=== PATIENT | female | born 1995 | race Caucasian/White ===

== ENCOUNTER 2023-09-27 07:37 | Inpatient (IN) ==
[2023-09-27] MEDS ORDERED: LIDOCAINE 1% LOCAL 20 ML VIAL INFIL PRN (09:18)
[2023-09-27] MEDS ORDERED: OXYTOCIN 30 UNITS/NSS 30 UNITS/500 ML BAG IV PRN (09:18)
[2023-09-27 10:02] LABS: Hematocrit (blood only) 39.7 % (37.0-47.0); Hemoglobin 14.2 g/dl (12.0-16.0); Mean Corpuscular Hemoglobin 31.1 pg (25.0-34.0); Mean Corpuscular Hgb Conc 35.8 g/dL (32.0-36.0); Mean Corpuscular Volume 87.1 fL (80.0-100.0); Mean Platelet Volume 10.4 fL (9.4-12.4); Platelet Count 218 K/uL (130-400); RDW Coefficient of Variation 12.5 % (11.5-14.5); RDW Standard Deviation 39.7 fL (36.4-46.3); Red Blood Count 4.56 M/uL (4.20-5.40); White Blood Count 10.94 K/ul (4.8-10.8)
[2023-09-27 10:17] LABS: Albumin Globulin Ratio 1.1 (0.9-2); Albumin Level 3.3 gm/dl (3.4-5.0); BUN Creatinine Ratio 15.8 (10-20); Bilirubin Direct 0.2 mg/dl (0-0.2); Bilirubin,Total 0.7 mg/dl (0.2-1.0); Calcium 9.1 mg/dl (8.6-10.3); Creatinine Clr Calc Pharmacy 85.2 ml/min; Est GFR (African American) 87.7 ml/min; Est GFR (Non-African American) 75.7 ml/min; Globulin 3.1 gm/dl (2.5-4.0); Potassium 3.9 mmol/L (3.5-5.1); Total Protein 6.4 gm/dl (6.0-8.3)
--- NOTE | 2023-09-27 10:30 | Labor Progress Brief Note ---
Date of Service September 27, 2023 Assessment & Plan Admission and Anticipated Discharge Date Admission Date: September 27, 2023 Physical Exam Genitourinary: Manual OB Exam: + cervical dilation fingertip, + cervical effacement 20% and + station high OB Exam Monitor Tracing: + external FHT monitor used, + external uterine monitor used, + category I and + normal FHT variability Results & Data Vital Signs (Past 12 Hours) Vital Signs Temp Pulse Resp BP 09/27/23 09:15 69 09/27/23 09:15 161/99 H 09/27/23 09:04 77 09/27/23 09:04 143/100 H 09/27/23 08:59 79 09/27/23 08:59 144/99 H 09/27/23 08:18 80 09/27/23 08:18 145/95 H 09/27/23 07:53 36.7 C 20 09/27/23 07:49 93 H 135/96
[2023-09-27 10:57] LABS: Total Protein Urine Random < 4.0 mg/dl (0-11.9)
[2023-09-27 11:03] LABS: Creatinine Urine Random 16.1 mg/dl
[2023-09-27] MEDS: DINOPROSTONE 10 MG INSERT PV ONE (11:05)
--- NOTE | 2023-09-27 11:15 | History & Physical Report ---
Date of Service September 27, 2023 Assessment & Plan (1) Post-dates : Plan: Cervidil for cervical ripening Admission and Anticipated Discharge Date Admission Date: September 27, 2023 History of Present Illness Chief Complaint: induction of labor Primary Care Provider: ROSE MARY PCP 28 F P0000 at 40.5 weeks presents for IOL for post dates . GBS is negative. Her course has been uneventful. Allergies Allergy/AdvReac Type Severity Reaction Status Date / Time codeine AdvReac Hives Verified 09/27/23 08:21 Penicillins AdvReac Hives Verified 09/27/23 08:21 Home Medications Medication Instructions Recorded Confirmed Type ferrous sulfate 325 mg (65 mg 325 mg PO BID 09/27/23 09/27/23 History iron) tablet (Iron (ferrous sulfate)) prenat.vits,augustine,[id number] 1 tab DAILY 09/27/23 09/27/23 History Patient History Medical History No known health problems Surgical History No history of previous surgery Social History Smoking Status: Never smoker Hx Alcohol Use: No Hx Substance Use: No Preferred Language: Arabic Communication Ability: Effective Physicist Acoustics Required: No Beliefs That Will Affect Care: None marital status: Current Living Situation: Spouse Current Living Situation Comment: Negro- Other Information That Helps Us Care for You: No Feels Safe at Home: Yes Safety Concerns: Feels Safe At This Time Assistive Devices: None 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 Review of Systems All systems reviewed & are unremarkable except as noted in HPI & below Physical Exam Constitutional: WD/WN, vitals as above Eyes: PERRL, conjunctivae normal, anicteric sclerae Respiratory: normal respiratory effort, lungs clear to auscultation Cardiovascular: Rate/Rhythm: regular rate and regular rhythm Gastrointestinal (Abdomen): Inspection/Auscultation: abdomen normal to inspection Musculoskeletal: no cyanosis or clubbing, extremities motor strength 5/5 Extremities: extremities normal to inspection no edema noted Skin: no rashes, warm and dry Neurologic: patellar DTR's 2+ bilat, sensation intact Psychiatric: A+Ox3, euthymic affect Genitourinary: OB Exam Monitor Tracing: + external FHT monitor used, + external uterine monitor used, + category I and + normal FHT variability Cervidil 10 mg placed vaginally Results & Data Vital Signs (Past 12 Hours) Vital Signs Temp Pulse Resp BP 09/27/23 10:51 74 09/27/23 10:51 134/95 09/27/23 09:15 69 09/27/23 09:15 161/99 H 09/27/23 09:04 77 09/27/23 09:04 143/100 H 09/27/23 08:59 79 09/27/23 08:59 144/99 H 09/27/23 08:18 80 09/27/23 08:18 145/95 H 09/27/23 07:53 36.7 C 20 09/27/23 07:49 93 H 135/96 Laboratory Results 09/27/23 09/27/23 09:33 Unknown WBC 10.94 H RBC 4.56 Hgb 14.2 Hct 39.7 MCV 87.1 MCH 31.1 MCHC 35.8 RDW Std Deviation 39.7 RDW Coeff of Elodia 12.5 Plt Count 218 MPV 10.4 Sodium 135 L Potassium 3.9 Chloride 106 Carbon Dioxide 22 Anion Gap 7 BUN 16 Creatinine 1.01 Est Cr Clr Drug Dosing 85.2 Est GFR ( Amer) 87.7 Est GFR (Non-Af Amer) 75.7 BUN/Creatinine Ratio 15.8 Glucose 82 Calcium 9.1 Total Bilirubin 0.7 Direct Bilirubin 0.2 AST 22 ALT 18 Alkaline Phosphatase 170 H Total Protein 6.4 Albumin 3.3 L Globulin 3.1 Albumin/Globulin Ratio 1.1 Ur Random Creatinine 16.1 U Random Total Protein < 4.0 Protein/Creatinin Ratio TNP Monitoring External Monitor Cat 1 (1) Post-dates Post-term type: 40-42 weeks gestation Qualified Code(s): O48.0 - Post-term
--- OUTSIDE RECORDS SUMMARY | 2023-09-27 15:07 | External Medical Summary | Summary of Care ---
Author Name Unknown Organization [facility] Address [address] [place] [address] Phone [phone] Care Team Providers Care Commercial Counsel Name Role Phone Mar Pittman Primary Care Provider [phone] Reason for Visit * Reason Comments Return Visit Encounter Details Date Type Department Care Team (Late st Contact Info) Description 09/24/2023 1:30 PM EDT Office Visit Gynecology/Obstetric s Anthony Groves [address] [facility] [place] [address] BackerNicole CRNP [address] [facility] [address] Normal in third trimester*; Antepartum anemia complicating Allergies Active Allergy Reactions Criticality Noted Date Comments Codeine Hives 09/08/2021 Penicillins Hives 09/08/2021 documented as of this encounter (statuses as of 09/24/2023) Medications Medication Sig Dispensed Refills Start Date End Date Status 28-0.8 MG Oral Tablet Take by mouth. 0 Active Breast PumpIndications:Breas t feeding status of mother Double electric pump, LUH 09/22/23, Z39.1 1 Each 0 07/05/2023 Active Ferrous Sulfate 325 (65 Fe) MG Oral Tablet (Feosol)Indications:A ntepartum anemia complicating Take 1 Tablet by mouth in the morning and 1 Tablet before bedtime. 60 Tablet 3 07/06/2023 Active documented as of this encounter (statuses as of 09/24/2023) Active Problems Problem Noted Date Diagnosed Date Antepartum anemia complicating 024 Overview: Hgb 11.7, iron sent - 28 wks Normal 03/20/2023 H/O dysplastic nevus 03/12/2023 Overview: Mildly atypical nevus (L upper back) Family history of breast cancer in mother 2021 Overview: Mom diagnosed at age 37, unsure if genetic testing was completed. She's s/p bilateral mastectomy Estimated Date of Delivery Comme nts Yes 09/22/2023 Based on last me nstrual period of 12/16/2022 documented as of this encounter (statuses as of 09/24/2023) Resolved Problems Problem Noted Date Diagnosed Date Resolved Date Pyelectasis 05/10/2023 08/03/2023 Overview: pyelectasis at 20w u/s. Recheck in 3rd trimester documented as of this encounter (statuses as of 09/24/2023) Immunizations Name Administration Dates Next Due COVID-19 mRNA, LNP-s, No Pre serve, 2-Dose Series ([employer]) 07/27/2020,07/06/2020 COVID-19, mRNA, LNP-s, PF, B ooster, 100mcg/0.5mg (Moderna) 05/11/2021 Seasonal Influenza, PF, 6 M & above, IM , (FluLaval or Fluzone) 04/30/2023 TDAP (age 10 and older)(Boostrix) 07/05/2023 documented as of this encounter Social History Tobacco Use Types Packs/Day Years Used Date Smoking Tobacco: Never Smokeless Tobacco: Never Alcohol Use Standard Drinks/Week Comments Not Currently 0 (1 standard drink = 0.6 oz pur e alcohol) social PHQ-2 Answer Date Recorded PHQ Adult Total Score 0 05/17/2023 Hunger Vital Sign Answer Date Recorded Within the past 12 months, y ou worried that your food would run out before you got the money to buy more. Never true 02/20/20 23 Within the past 12 months, t he food you bought just didn't last and you didn't have money to get more. Never true 02/19/2023 [place] Depression Scale Answer Date Recorded [place] Depression Scale Total 5 08/17/2023 The thought of harming myself has occurred to me . Never 08/17/2023 Estimated Date of Delivery Comme nts Yes 09/22/2023 Based on last me nstrual period of 12/16/2022 Sex and Gender Information Value Date Recorded Sex Assigned at Female 02/19/2023 2:01 PM EDT Gender Identity Female 02/19/2023 2:01 PM EDT Sexual Orientation Straight 02/19/2023 2: 01 PM EDT Job Start Date Occupation Industry Not on file Not on file Not on file documented as of this encounter Last Filed Vital Signs Vital Sign Reading Time Taken Comments Blood Pressure 120/82 09/24/2023 1:29 PM EDT Pulse - - Temperature - - Respiratory Rate - - Oxygen Saturation - - Inhaled Oxygen Concentration - - Weight 77.1 kg (170 lb) 09/24/2023 1:29 PM EDT Height - - Body Mass Index 28.29 09/10/2023 1:23 PM EDT documented in this encounter Progress Notes * Nicole Sommer CRNP - 09/24/2023 1:43 PM EDT 40w2d Baby is moving well, no signs of labor. Has an induction scheduled later this week, discussed this process. She would like a cervical exam; fingertip, long. Unable to sweep membranes, pt aware of this. Offered to reschedule induction to 41+ weeks, she is ok with the current plan. Call with any decreased FM or signs of labor. Graduate Fellow Documentation Provider requested compounding assistant. Name of compounding assistant: GUALBERTO Dunn LPN. documented in this encounter Plan of Treatment Upcoming Encounters Date Type Department Care Team (Late st Contact Info) Description 04/29/2024 2:20 PM EDT Office Visit Dermatology[address] [place] [address] Julee Gomes PA-C [address] [place] [address] [place] [address] 05/19/2024 12:10 PM EST Office Visit [facility] [address] [facility] [phone] Mar Pittman DO [address] [place] [facility] [place] [address] Health Maintenance Due Date Last Done Comments Hepatitis B (1 of 3 - 19+ 3-dose series) 2014 COVID-19 Vaccine (4 - 2022-2 4 season) 2023 05/11/2021, 07/27/2020, 07/06/2020 Depression Screening 05/17/2024 05/17/2023 Pap Smear 09/08/2024 09/08/2021 DTaP,Tdap,and Td Vaccines (2 - Td or Tdap) 07/05/2033 07/05/2023 Influenza Vaccine (FLU shot) Completed 04/30/2023 GARDASIL-HPV IMMUNIZATION SERIES Aged Out No longer eligible b ased on patient's age to complete this topic MENINGOCOCCAL (MENACTRA/MENVEO) Aged Out No longer eligible b ased on patient's age to complete this topic Pneumococcal Vaccine: Pediatrics (0 to 5 Years) and At-Risk Patients (6 to 64 Years) Aged Out No longer eligible b ased on patient's age to complete this topic documented as of this encounter Medical Devices Not on filedocumented as of this encounter Visit Diagnoses Diagnosis Normal in third trimester- Primary Antepartum anemia complicating Anemia, antepartum documented in this encounter Care Teams Commercial Counsel Relationship Specialty Start Date End Date Mar Pittman DO [address] [facility] [address] PCP - General Family Medicine 05/01/22 documented as of this encounter
--- OUTSIDE RECORDS SUMMARY | 2023-09-27 15:07 | External Medical Summary | Summary of Care ---
Author Name Unknown Organization [facility] Address [address] [facility] [address] Phone [phone] Care Team Providers Care Station Mechanic Helper Name Role Phone Mar Pittman Primary Care Provider [phone] Reason for Visit * Reason Comments Return Visit Encounter Details Date Type Department Care Team (Late st Contact Info) Description 08/27/2023 11:15 AM EST Office Visit Gynecology/Obstetric s [facility] [address] [place] [address] Judit Olsen PA-C [address] [place] [address] Normal in third trimester*; Antepartum anemia complicating Allergies Active Allergy Reactions Criticality Noted Date Comments Codeine Hives 09/08/2021 Penicillins Hives 09/08/2021 documented as of this encounter (statuses as of 08/27/2023) Medications Medication Sig Dispensed Refills Start Date [...] as of this encounter (statuses as of 08/27/2023) Active Problems Problem Noted Date Diagnosed Date [...] as of this encounter (statuses as of 08/27/2023) Resolved Problems Problem Noted Date Diagnosed Date Resolved Date Pyelectasis 05/10/2023 08/03/2023 Overview: pyelectasis at 20w u/s. Recheck in 3rd trimester documented as of this encounter (statuses as of 08/27/2023) Immunizations Name Administration Dates Next Due COVID-19 mRNA, LNP-s, No Pre serve, 2-Dose Series ([employer]) 07/27/2020,07/06/2020 COVID-19, mRNA, LNP-s, PF, B ooster, [...] money to get more. Never true 02/19/2023 [place] Depression Scale Answer Date Recorded [place] Depression Scale Total 5 08/17/2023 The thought [...] Sign Reading Time Taken Comments Blood Pressure 116/78 08/27/2023 11:14 AM EST Pulse - - Temperature - - Respiratory Rate - - Oxygen Saturation - - Inhaled Oxygen Concentration - - Weight 74.5 kg (164 lb 3.2 oz) 08/27/2023 11:14 AM EST Height 165.1 cm (5' 5") 08/27/2023 11:14 AM EST Body Mass Index 27.32 08/27/2023 11:14 AM EST documented in this encounter Progress Notes * Judit Olsen PA-C - 08/27/2023 11:16 AM EST 36w2d First time seeing patient. Due for GBS, collected. Denies bleeding, lof. Pos fm. Had some cramping early this morning, not severe, no timing and stopped. Unsure if related to bowels. Labor precautions reviewed. RTC in 1 week Judit Olsen PA-C documented in this encounter Nursing Notes * Lazara Marin RN - 08/27/2023 11:15 AM EST Patient here for CADY 36w2d No concerns GBS today + FM Lazara Marin RN documented in this encounter Plan of Treatment Upcoming Encounters Date Type Department Care Team (Late st Contact Info) Description 09/05/2023 2:15 PM EST Office Visit Gynecology/Obstetrics [facility] [address] [address] Joanne House CRNP [address] [place], [place] [address] 09/10/2023 1:30 PM EDT Office Visit Gynecology/Obstetrics [address] [address] Katy Marte, [facility] [address] [facility] [place] [address] 09/18/2023 1:45 PM EDT Office Visit Gynecology/Obstetrics [facility] [address] [facility] [place] [address] Nicole Sommer CRNP [address] [facility] [address] 04/29/2024 2:20 PM EDT Office Visit [facility] [address] [place] [address] Julee Gomes, PARebecca [address] [place] [address] [place] [address] 05/19/2024 12:10 PM EST Office Visit [facility] [address] [facility], [place] [phone] Mar Pittman DO [address] [facility] [place] [address] Scheduled Orders Name Type Priority Associated Diagnoses Orde r Schedule GROUP B STREP CULTURE/PCR Lab Routine Normal in third trimester Expected: 08/27/2023, Expires: 08/27/2024 Health Maintenance Due Date Last Done Comments Hepatitis B (1 of 3 - 19+ 3-dose series) 2014 COVID-19 Vaccine (2022-2 4 season) 2023 05/11/2021, 07/27/2020, 07/06/2020 Depression [...] antepartum documented in this encounter Care Teams Station Mechanic Helper Relationship Specialty Start Date End Date Mar Pittman DO [address] [place] [address] PCP - General Family Medicine 05/01/22 documented as of this encounter
--- OUTSIDE RECORDS SUMMARY | 2023-09-27 15:07 | External Medical Summary | Summary of Care ---
Author Name Unknown Organization [facility] Address [address] [place] [address] Phone [phone] Care Team Providers Care Photographic Specialist Name Role Phone Mar Pittman Primary Care Provider [phone] Reason for Visit * Reason Comments Return Visit Encounter Details Date Type Department Care Team (Late st Contact Info) Description 09/10/2023 1:30 PM EDT Office Visit Gynecology/Obstetric [facility] [address] [place] [address] Katy Marte, LUIS MANUEL [address] [place] [address] Normal in third trimester*; Antepartum anemia complicating Allergies Active Allergy Reactions Criticality Noted Date Comments Codeine Hives 09/08/2021 Penicillins Hives 09/08/2021 documented as of this encounter (statuses as of 09/10/2023) Medications Medication Sig Dispensed Refills Start Date [...] as of this encounter (statuses as of 09/10/2023) Active Problems Problem Noted Date Diagnosed Date [...] as of this encounter (statuses as of 09/10/2023) Resolved Problems Problem Noted Date Diagnosed Date Resolved Date Pyelectasis 05/10/2023 08/03/2023 Overview: pyelectasis at 20w u/s. Recheck in 3rd trimester documented as of this encounter (statuses as of 09/10/2023) Immunizations Name Administration Dates Next Due COVID-19 mRNA, LNP-s, No Pre serve, 2-Dose Series ([employer]) 07/27/2020,07/06/2020 COVID-19, mRNA, LNP-s, PF, B ooster, [...] money to get more. Never true 02/19/2023 [place] Depression Scale Answer Date Recorded [place] Depression Scale Total 5 08/17/2023 The thought [...] Sign Reading Time Taken Comments Blood Pressure 118/78 09/10/2023 1:23 PM EDT Pulse - - Temperature - - Respiratory Rate - - Oxygen Saturation - - Inhaled Oxygen Concentration - - Weight 76.7 kg (169 lb) 09/10/2023 1:23 PM EDT Height 165.1 cm (5' 5") 09/10/2023 1:23 PM EDT Body Mass Index 28.12 09/10/2023 1:23 PM EDT documented in this encounter Progress Notes * Katy Marte CNM - 09/10/2023 1:31 PM EDT Neelam Carter is a 28 year old female here for her routine OB appointment at 38w2d Her Estimated Date of Delivery: 09/22/23 REVIEW OF SYSTEMS: She affirms movement. Denies vaginal bleeding, LOF, contractions, N/V, headaches, vision changes, and RUQ pain. PHYSICAL EXAM: Filed Vitals: 09/10/23 1323 BP: 118/78 Weight: 76.7 kg (169 lb) Height: 1.651 m (5' 5") +FHT 150-160bpm Fundal height: 37cm ASSESSMENT/PLAN: (O99.019) Antepartum anemia complicating Plan: -Continue PO iron twice daily (Z34.93) Normal in third trimester (primary encounter diagnosis) Plan: - Recommended red raspberry leaf tea, dates, Spinning babies exercises - labor precautions and kick counts reviewed - RTO in 1 week - Discussed the recommendation for delivery by 42 weeks. Patient desires an elective induction the week of her due date. Elective induction of labor at [facility] scheduled for 09/27/23. Katy Marte CNM documented in this encounter Nursing Notes * Ramila Victor LPN - 09/10/2023 1:26 PM EDT 38w2d Denies concerns documented in this encounter Plan of Treatment Upcoming Encounters Date Type Department Care Team (Late st Contact Info) Description 09/18/2023 1:45 PM EDT Office Visit Gynecology/Obstetrics [facility] [address] [place] [address] Nicole Sommer CRNP [address] [place] [address] 04/29/2024 2:20 PM EDT Office Visit [facility]at[facility], [place] [address] [address] [facility] [address] Julee Gomes PA-C [address] [place] [address] [place] [address] 05/19/2024 12:10 PM EST Office Visit [facility], [place] [address] [facility] [phone] Mar Pittman DO [address] [facility] [address] Health Maintenance Due Date Last Done Comments [...] antepartum documented in this encounter Care Teams Photographic Specialist Relationship Specialty Start Date End Date Mar Pittman DO [address] [place] [facility] [place] [address] PCP - General Family Medicine 05/01/22 documented as of this encounter
--- OUTSIDE RECORDS SUMMARY | 2023-09-27 15:07 | External Medical Summary ---
Author Name Unknown Address Unknown Organization K01:[facility] [place] - [address] [facility] [address] [facility] [address] Laboratory Report Ordering Provider Test Date Status DAXA EM 08/27/2023 11:58:59 Final Observation Date Value Abnormality Reference (Units ) Status Streptococcus agalactiae DNA [Presence] in Specimen by HENRY with probe detection 08/27/2023 11:58:59 Negative Negative Final No Group B Streptococcus det ected by culture-enhanced PCR (amplified probe).
The collection of vaginal/rectal swab specimen combinations (FDA approved specimen type) is optimal for the detection of Group B Streptococcus. Single source collection (vaginal only or rectal only) or alternate specimen sources may lead to false negative results. Performing Location [facility] - [address] [facility] [address]
--- OUTSIDE RECORDS SUMMARY | 2023-09-27 15:07 | External Medical Summary | Summary of Care ---
Author Name Unknown Organization [facility] Address [address] [place] [address] Phone [phone] Care Team Providers Care Jukebox Routeman Name Role Phone Mar Pittman Primary Care Provider Reason for Visit * Reason Comments Return Visit Encounter Details Date Type Department Care Team (Late st Contact Info) Description 08/17/2023 8:30 AM EST Office Visit Gynecology/Obstetric [facility] [address] [place] [address] Ivory Falcon, DNP, CNM [address] [place] [address] Normal intrauterine , antepartum*; Antepartum anemia complicating Allergies Active Allergy Reactions Criticality Noted Date Comments Codeine Hives 09/08/2021 Penicillins Hives 09/08/2021 documented as of this encounter (statuses as of 08/17/2023) Medications Medication Sig Dispensed Refills Start Date [...] as of this encounter (statuses as of 08/17/2023) Active Problems Problem Noted Date Diagnosed Date [...] as of this encounter (statuses as of 08/17/2023) Resolved Problems Problem Noted Date Diagnosed Date Resolved Date Pyelectasis 05/10/2023 08/03/2023 Overview: pyelectasis at 20w u/s. Recheck in 3rd trimester documented as of this encounter (statuses as of 08/17/2023) Immunizations Name Administration Dates Next Due COVID-19 mRNA, LNP-s, No Pre serve, 2-Dose Series ([employer]) 07/27/2020,07/06/2020 COVID-19, mRNA, LNP-s, PF, B ooster, [...] money to get more. Never true 02/19/2023 [place] Depression Scale Answer Date Recorded [place] Depression Scale Total 5 08/17/2023 The thought [...] Sign Reading Time Taken Comments Blood Pressure 116/70 08/17/2023 8:15 AM EST Pulse - - Temperature - - Respiratory Rate - - Oxygen Saturation - - Inhaled Oxygen Concentration - - Weight 72.6 kg (160 lb) 08/17/2023 8:15 AM EST Height - - Body Mass Index 26.63 05/17/2023 9:06 AM EST documented in this encounter Progress Notes * Ivory Falcon, TOMEKA, CNM - 08/17/2023 8:20 AM EST Neelam Carter is a 28 year old female here for her routine OB appointment at 34w6d Her Estimated Date of Delivery: 09/22/23 REVIEW OF SYSTEMS: She affirms movement. Denies vaginal bleeding, LOF, contractions, N/V, headaches Completed classes, [facility] classes and [facility] tour. Plans to use condoms pp for contraception. Plans to travel to [place] for a wedding, discussed compression stockings, walking, and hydration. [place] Depression Scale: [place] Depression Scale Total: 5 [place] suicide question and score: Score of 3 = Yes, quite often. Score of 2 = Sometimes. Score of 1 = Hardly ever The thought of harming myself has occurred to me.: 0 PHYSICAL EXAM: Filed Vitals: 08/17/23 0815 BP: 116/70 Weight: 72.6 kg (160 lb) +FHT 130s Fundal height 34cm ASSESSMENT/PLAN: (Z34.90) Normal (primary encounter diagnosis) Plan: - Condoms - Breast feeding (classes complete) - No concerns today (O99.019) Antepartum anemia complicating Plan: - Taking iron Supervision of - discussed GBS and to expect swab to be complete at next visit -Reviewed labor precautions, kick counts, loss of fluid, vaginal bleeding, round ligament pain, and encouraged hydration. - RTO in 2 weeks Ivory Falcon DNP, CNM * Kaylin Perez LPN - 08/17/2023 8:15 AM EST 34w6d Denies vaginal bleeding/rom + movement No new concerns documented in this encounter Plan of Treatment Upcoming Encounters Date Type Department Care Team (Late st Contact Info) Description 08/27/2023 11:15 AM EST Office Visit Gynecology/Obstetrics [facility] [address] [facility] [place] [address] Judit Olsen PA-C [address] [place] [address] 04/29/2024 2:20 PM EDT Office Visit Dermatology, [place] [address] [address] [facility] [place] [address] Julee Gomes PA-C [address] [place] [address] [place] [address] 05/19/2024 12:10 PM EST Office Visit [facility] [address] [facility] [phone] Mar Pittman DO [address] [facility] [place] [address] Health Maintenance Due Date Last Done Comments [...] of this encounter Visit Diagnoses Diagnosis Normal intrauterine , antepartum- Primary Antepartum anemia complicating Anemia, antepartum documented in this encounter Care Teams Jukebox Routeman Relationship Specialty Start Date End Date Mar Pittman DO [address] [place] [address] PCP - General Family Medicine 05/01/22 documented as of this encounter
--- OUTSIDE RECORDS SUMMARY | 2023-09-27 15:07 | External Medical Summary | Summary of Care ---
Author Name Unknown Organization [facility] Address [address] [place] [address] Phone [phone] Care Team Providers Care Station Captain Name Role Phone Mar Pittman Primary Care Provider [phone] Reason for Visit * Reason Comments Return Visit Encounter Details Date Type Department Care Team (Late st Contact Info) Description 08/27/2023 11:15 AM EST Office Visit Gynecology/Obstetric s [facility] [address] [place] [address] Judit Olsen PA-C [address] [place] [address] Normal in third trimester*; Antepartum anemia complicating [...] mRNA, LNP-s, No Pre serve, 2-Dose Series ([employer]) 07/27/2020,07/06/2020 COVID-19, mRNA, LNP-s, PF, B ooster, [...] money to get more. Never true 02/19/2023 [place] Depression Scale Answer Date Recorded [place] Depression Scale Total 5 08/17/2023 The thought [...] 09/05/2023 2:15 PM EST Office Visit Gynecology/Obstetrics [facility] [address] [facility] [place] [address] Joanne House CRNP [address] [place], [place] [address] 09/10/2023 1:30 PM EDT Office Visit Gynecology/Obstetrics [address] [place] [address] Katy Marte, [facility] [address] [facility] [place] [address] 09/18/2023 1:45 PM EDT Office Visit Gynecology/Obstetrics [facility] [address] [facility] [place] [address] Nicole Sommer CRNP [address] [facility] [address] 04/29/2024 2:20 PM EDT Office Visit [facility] [address] [facility], [place] [address] Julee Gomes, PARebecca [address] [place] [address] [place] [address] 05/19/2024 12:10 PM EST Office Visit [facility] [address] [facility], [place] [phone] Mar Pittman DO [address] [facility] [place] [address] Pending Results Name Type Priority Associated Diagnoses Date /Time GROUP B STREP CULTURE/PCR Lab Routine Normal in third trimester 08/27/2023 11:58 AM EST Scheduled Orders Name Type Priority Associated Diagnoses [...] documented in this encounter Care Teams Station Captain Relationship Specialty Start Date End Date Mar Pittman DO [address] [place] [address] PCP - General Family Medicine 05/01/22 documented as of this encounter
--- OUTSIDE RECORDS SUMMARY | 2023-09-27 15:07 | External Medical Summary | Summary of Care ---
Author Name Unknown Organization [facility] Address [address] [place] [address] Phone [phone] Care Team Providers Care Electronic Pagination System Operator Name Role Phone Mar Pittman Primary Care Provider Reason for Visit * Reason Comments Return Visit Encounter Details Date Type Department Care Team (Late st Contact Info) Description 09/18/2023 1:45 PM EDT Office Visit Gynecology/Obstetric s [facility] [address] [facility] [place] [address] BackerNicole CRNP [address] [facility] [address] Normal in third trimester*; Antepartum anemia complicating ; Baseline heart rate range 100 to 120 beats per minute Allergies Active Allergy Reactions Criticality Noted Date Comments Codeine Hives 09/08/2021 Penicillins Hives 09/08/2021 documented as of this encounter (statuses as of 09/18/2023) Medications Medication Sig Dispensed Refills Start Date [...] as of this encounter (statuses as of 09/18/2023) Active Problems Problem Noted Date Diagnosed Date [...] as of this encounter (statuses as of 09/18/2023) Resolved Problems Problem Noted Date Diagnosed Date Resolved Date Pyelectasis 05/10/2023 08/03/2023 Overview: pyelectasis at 20w u/s. Recheck in 3rd trimester documented as of this encounter (statuses as of 09/18/2023) Immunizations Name Administration Dates Next Due COVID-19 mRNA, LNP-s, No Pre serve, 2-Dose Series ([employer]) 07/27/2020,07/06/2020 COVID-19, mRNA, LNP-s, PF, B ooster, [...] money to get more. Never true 02/19/2023 [place] Depression Scale Answer Date Recorded [place] Depression Scale Total 5 08/17/2023 The thought [...] Sign Reading Time Taken Comments Blood Pressure 122/78 09/18/2023 1:40 PM EDT Pulse - - Temperature - - Respiratory Rate - - Oxygen Saturation - - Inhaled Oxygen Concentration - - Weight 76.7 kg (169 lb) 09/18/2023 1:40 PM EDT Height - - Body Mass Index 28.12 09/10/2023 1:23 PM EDT documented in this encounter Progress Notes * Nicole Sommer CRNP - 09/18/2023 1:42 PM EDT 39w3d Baby is active. Denies regular ctx, leaking/bleeding. Has a post-dates induction scheduled. HR 110s with doppler, NST reactive/cat 1 tracing. 1 week return GUALBERTO Peoples ASSESSMENT assessment with Non-stress Test completed on 09/18/2023 at 39.3 weeks gestation for indicationof low baseline HR heart baseline: 120 bpm Variability: Moderate Decelerations: absent Accelerations: present Contractions: None NST start time: 1351 NST stop time: 1431 NST strip reviewed, interpreted, and approved by OB provider, GUALBERTO Peoples . NST strip stored in clinic storage file * Kaylin Perez LPN - 09/18/2023 1:40 PM EDT 39w3d Denies vaginal bleeding/rom + movement No new concerns documented in this encounter Plan of Treatment Upcoming Encounters Date Type Department Care Team (Late st Contact Info) Description 09/24/2023 1:30 PM EDT Office [facility] [address] [facility] [place] [address] Nicole Sommer CRNP [address] [place] [address] 04/29/2024 2:20 PM EDT Office Visit Dermatology, [place] [address] [place] [address] Julee Gomes PA-C [address] [place] [address] [place] [address] 05/19/2024 12:10 PM EST Office Visit Family Practice, [place] [address] [facility], [place] [phone] Mar Pittman DO [address] [place] [address] Health Maintenance Due Date Last Done Comments Hepatitis B (1 of 3 - 19+ 3-dose series) 2014 COVID-19 Vaccine ( - 2022-2 4 season) 2023 05/11/2021, 07/27/2020, [...] trimester- Primary Antepartum anemia complicating Anemia, antepartum Baseline heart rate range 100 to 120 beats per minute documented in this encounter Care Teams Electronic Pagination System Operator Relationship Specialty Start Date End Date Mar Pittman DO [address] [place] [address] PCP - General Family Medicine 05/01/22 documented as of this encounter
--- OUTSIDE RECORDS SUMMARY | 2023-09-27 15:07 | External Medical Summary | Summary of Care ---
Author Name Unknown Organization [facility] Address [address] [place] [address] Phone [phone] Care Team Providers Care Study Abroad Advisor Name Role Phone Mar Pittman DO Primary Care Provider [phone] Reason for Visit * Reason Comments Return Visit Encounter Details Date Type Department Care Team (Late st Contact Info) Description 09/05/2023 2:15 PM EST Office Visit Gynecology/Obstetric s [facility] [address] [place] [address] Joanne House CRNP [address] [facility] [place] [address] Normal in third trimester*; Antepartum anemia complicating Allergies Active Allergy Reactions Criticality Noted Date Comments Codeine Hives 09/08/2021 Penicillins Hives 09/08/2021 documented as of this encounter (statuses as of 09/05/2023) Medications Medication Sig Dispensed Refills Start Date [...] as of this encounter (statuses as of 09/05/2023) Active Problems Problem Noted Date Diagnosed Date [...] as of this encounter (statuses as of 09/05/2023) Resolved Problems Problem Noted Date Diagnosed Date Resolved Date Pyelectasis 05/10/2023 08/03/2023 Overview: pyelectasis at 20w u/s. Recheck in 3rd trimester documented as of this encounter (statuses as of 09/05/2023) Immunizations Name Administration Dates Next Due COVID-19 mRNA, LNP-s, No Pre serve, 2-Dose Series ([employer]) 07/27/2020,07/06/2020 COVID-19, mRNA, LNP-s, PF, B ooster, [...] money to get more. Never true 02/19/2023 [place] Depression Scale Answer Date Recorded [place] Depression Scale Total 5 08/17/2023 The thought [...] Sign Reading Time Taken Comments Blood Pressure 120/74 09/05/2023 2:19 PM EST Pulse - - Temperature - - Respiratory Rate - - Oxygen Saturation - - Inhaled Oxygen Concentration - - Weight 75.8 kg (167 lb) 09/05/2023 2:19 PM EST Height 165.1 cm (5' 5") 09/05/2023 2:19 PM EST Body Mass Index 27.79 09/05/2023 2:19 PM EST documented in this encounter Progress Notes * Joanne House CRNP - 09/05/2023 2:30 PM EST 37w4d Complaints: none Feeling well overall. Good FM. No contractions, bleeding, or LOF. GUALBERTO Astudillo * Tsering Brower LPN - 09/05/2023 2:19 PM EST 37w4d Denies any concerns documented in this encounter Plan of Treatment Upcoming Encounters Date Type Department Care Team (Late st Contact Info) Description 09/10/2023 1:30 PM EDT Office Visit Gynecology/Obstetrics [address] [place] [address] Katy Marte, CNM [address] [place], [place] [address], [place] [address] 09/18/2023 1:45 PM EDT Office [facility] [address] [place] [address] Nicole Sommer CRNP [address] [place] [address] 04/29/2024 2:20 PM EDT Office Visit Dermatology, [place] [address] [facility], [place] [address] Julee Gomes PA-C [address] [place] [address] [place] [address] 05/19/2024 12:10 PM EST Office Visit Family Practice, [place] [address] [facility], [place] [phone] Mar Pittman DO [address] [facility] [place] [address] Health Maintenance Due Date Last Done Comments [...] antepartum documented in this encounter Care Teams Study Abroad Advisor Relationship Specialty Start Date End Date Mar Pittman DO [address] [place], [place] [phone] PCP - General Family Medicine 05/01/22 documented as of this encounter
--- OUTSIDE RECORDS SUMMARY | 2023-09-27 15:08 | External Medical Summary | Summary of Care ---
Author Name Unknown Organization [facility] Address [address] [place] [address] Phone [phone] Care Team Providers Care Chair Inspector And Leveler Name Role Phone Mar Pittman Primary Care Provider Encounter Details Date Type Department Care Team (Late st Contact Info) Description 05/10/2023 Telephone Gynecology/Obstetrics [facility] [address] [place] [address] Joanne House CRNP [address] [facility] [place] [phone] Allergies Active Allergy Reactions Criticality Noted Date Comments Codeine Hives 09/08/2021 Penicillins Hives 09/08/2021 documented as of this encounter (statuses as of 05/11/2023) Medications Medication Sig Dispensed Refills Start Date End Date Status 28-0.8 MG Oral Tablet Take by mouth. 0 Active documented as of this encounter (statuses as of 05/11/2023) Active Problems Problem Noted Date Diagnosed Date Pyelectasis 05/10/2023 Overview: pyelectasis at 20w u/s. Recheck in 3rd trimester Normal 03/20/2023 H/O dysplastic nevus 03/12/2023 Overview: Mildly atypical nevus (L upper back) Family history of breast cancer in mother 2021 Overview: Mom diagnosed at age 37, unsure if genetic testing was completed. She's s/p bilateral mastectomy Estimated Date of Delivery Comme nts Yes 09/22/2023 Based on last me nstrual period of 12/16/2022 documented as of this encounter (statuses as of 05/11/2023) Immunizations Name Administration Dates Next Due COVID-19 mRNA, LNP-s, No Pre serve, 2-Dose Series ([employer]) 07/27/2020,07/06/2020 COVID-19, mRNA, LNP-s, PF, B ooster, 100mcg/0.5mg ([employer]) 05/11/2021 documented as of this encounter Social History Tobacco Use Types Packs/Day Years Used Date Smoking Tobacco: Never Smokeless Tobacco: Never Alcohol Use Standard Drinks/Week Comments Not Currently 0 (1 standard drink = 0.6 oz pur e alcohol) social Hunger Vital Sign Answer Date Recorded Within the past 12 months, y ou worried that your food would run out before you got the money to buy more. Never true 02/20/20 23 Within the past 12 months, t he food you bought just didn't last and you didn't have money to get more. Never true 02/19/2023 [place] Depression Scale Answer Date Recorded [place] Depression Scale Total 6 02/19/2023 The thought of harming myself has occurred to me . Never 02/19/2023 Estimated Date of Delivery Comme nts Yes [...] on file documented as of this encounter Miscellaneous Notes * Telephone Encounter - Ashley Almonte RN - 05/11/2023 8:08 AM EST Pt is aware. * Telephone Encounter - Ashley Almonte RN - 05/11/2023 7:57 AM EST left message for patient to call office * Telephone Encounter - Joanne House CRNP - 05/10/2023 4:44 PM EST Please make pt aware that her anatomy u/s showed pyelectasis. A portion of the baby's kidneysis slightly larger than expected. This is a VERY normal finding in , and rarely has any long-term effects. Recommendation is recheck via u/s in 3rd trimester, and if needed, after baby is born. All other anatomy was fine. documented in this encounter Plan of Treatment Upcoming Encounters Date Type Department Care Team (Late st Contact Info) Description 05/17/2023 9:10 AM EST Office Visit [place] [address] [facility] [place] [phone] Mar Pittman DO [address] [place] [address] 06/07/2023 1:30 PM EST Office Visit [facility]necology/[facility]stetrics [facility] [place] [address] Nicole Sommer CRNP [facility] [place] [address] 04/29/2024 2:20 PM EDT Office Visit Dermatology, [place] [address] [place] [address] Julee Gomes PA-C [address] [place] [address] [place] [address] Health Maintenance Due Date Last Done Comments Hepatitis B (1 of 3 - 3-dose series) 1995 Depression Screening 2007 DTaP,Tdap,and Td Vaccines (1 - Tdap) 2014 COVID-19 Vaccine (2022-2 4 season) 2023 05/11/2021, 07/27/2020, 07/06/2020 Influenza Vaccine (FLU shot) (#1) 2023 Pap Smear 09/08/2024 09/08/2021 GARDASIL-HPV IMMUNIZATION SERIES Aged Out No longer [...] Not on filedocumented as of this encounter Care Teams Chair Inspector And Leveler Relationship Specialty Start Date End Date Mar Pittman DO [address] [place] [address] PCP - General Family Medicine 05/01/22 documented as of this encounter
--- OUTSIDE RECORDS SUMMARY | 2023-09-27 15:08 | External Medical Summary ---
Author Name Unknown Address Unknown Organization [id number]:LABORATORY [facility] - [address] [place] [address] Laboratory Report Ordering Provider Test Date Status FAZAL GALINDO 08/02/2023 14:08:29 Final Observation Date Value Abnormality Reference (Units ) Status WBC, Total 08/02/2023 14:08:29 10.05 4.00-10.8 0 (K/uL) Final RBC 08/02/2023 14:08:29 4.20 3.85-5.15 (M/uL) Final Hemoglobin 08/02/2023 14:08:29 13.1 12.0-15.3 (g/dL) Final Anemia reflex testing trigge rs on a HGB < 12.0 for Females and HGB < 13.0 for Males in accordance with the WHO Anemia Guidelines
Anemia reflex testing triggers on a HGB < 12.0 for Females and HGB < 13.0 for Males in accordance with the WHO Anemia Guidelines HCT 08/02/2023 14:08:29 40.2 36.0-45.2 (%) Final MCV 08/02/2023 14:08:29 95.7 81.5-97.5 (fL) Final MCH 08/02/2023 14:08:29 31.2 27.0-34.0 (pg) Final MCHC 08/02/2023 14:08:29 32.6 32.0-36.0 (g/dL) Final RDW 08/02/2023 14:08:29 13.6 11.5-15.5 (%) Final Platelets 08/02/2023 14:08:29 197 140-400 (K /uL) Final MPV 08/02/2023 14:08:29 9.6 6.6-11.1 ( fL) Final Nucleated erythrocytes/100 leukocytes [Ratio] in Blood by Automated count 08/02/2023 14:08:29 0 <=0 (/100 WBCs) Fi nal Performing Location LABORATORY [facility] - [address] [facility] [address]
--- OUTSIDE RECORDS SUMMARY | 2023-09-27 15:08 | External Medical Summary ---
Author Name Unknown Address Unknown Organization [id number]:LABORATORY [place] [facility] - [address] [place] [address] Laboratory Report Ordering Provider Test Date Status BARTOLO VALLADARES 07/11/2023 07:49:54 Final Based on ACOG guideline, ges tational diabetes mellitus is diagnosed when any of the following is met:
Fasting is greater than or equal to 95 mg/dL
1 hour is greater than or equal to 180 mg/dL
2 hour is greater than or equal to 155 mg/dL
3 hour is greater than or equal to 140 mg/dL Observation Date Value Abnormality Reference (Units ) Status Glucose, fasting 07/11/2023 07:49:54 73 70- 94 (mg/dL) Final Performing Location LABORATORY [facility] [place] [address] - [address] [place] [address]
--- OUTSIDE RECORDS SUMMARY | 2023-09-27 15:08 | External Medical Summary ---
Author Name Unknown Address Unknown Organization [id number]:[facility]ORY [facility] [address] [facility] [address] Laboratory Report Ordering Provider Test Date Status BARTOLO VALLADARES 07/05/2023 14:20:55 Final Observation Date Value Abnormality Reference (Units ) Status Iron 07/05/2023 14:20:55 103 33-151 (ug/dL) Final Iron-binding capacity 07/05/2023 14:20:55 453 Above high normal 250-425 (ug/dL) Final Transferrin Sat % 07/05/2023 14:20:55 23 15-55 (%) Final Performing Location [facility] [address] [facility] [address]
--- OUTSIDE RECORDS SUMMARY | 2023-09-27 15:08 | External Medical Summary ---
Author Name Unknown Address Unknown Organization K0G:LABORATORY [place] [address] - [address] [place] [address] Laboratory Report Ordering Provider Test Date Status BARTOLO VALLADARES 07/11/2023 09:50:26 Final Observation Date Value Abnormality Reference (Units ) Status Glucose, 2-hr post glucose challenge 07/11/2023 09:50:26 101 70-154 (mg/dL) Final Performing Location LABORATORY [place] [address] - [address] [place] [address]
--- OUTSIDE RECORDS SUMMARY | 2023-09-27 15:08 | External Medical Summary | Summary of Care ---
Author Name Unknown Organization [facility] Address [address] [place] [address] Phone [phone] Care Team Providers Care Primer Assembler Name Role Phone Mar Pittman Primary Care Provider [phone] Reason for Visit * Reason Comments Outpatient Testing Encounter Details Date Type Department Care Team (Late st Contact Info) Description 08/02/2023 2:30 PM EST Laboratory Laboratory, [facility] [address] [place] [address] [facility] [address] [place] [address] Antepartum anemia complicating Allergies Active Allergy Reactions Criticality Noted Date Comments Codeine Hives 09/08/2021 Penicillins Hives 09/08/2021 documented as of this encounter (statuses as of 08/02/2023) Medications Medication Sig Dispensed Refills Start Date [...] as of this encounter (statuses as of 08/02/2023) Active Problems Problem Noted Date Diagnosed Date Antepartum anemia complicating 024 Overview: Hgb 11.7, iron sent - 28 wks Pyelectasis 05/10/2023 Overview: pyelectasis at 20w u/s. [...] as of this encounter (statuses as of 08/02/2023) Immunizations Name Administration Dates Next Due COVID-19 mRNA, LNP-s, No Pre serve, 2-Dose Series ([employer]) 07/27/2020,07/06/2020 COVID-19, mRNA, LNP-s, PF, B ooster, [...] money to get more. Never true 02/19/2023 [place] Depression Scale Answer Date Recorded [place] Depression Scale Total 7 07/05/2023 The thought of harming myself has occurred to me . Never 07/05/2023 Estimated Date of Delivery Comme nts Yes [...] on file documented as of this encounter Plan of Treatment Upcoming Encounters Date Type Department Care Team (Late st Contact Info) Description 08/17/2023 8:30 AM EST Office Visit Gynecology/Obstetrics [facility] [address] [place] [address] Ivory Falcon, DNP, CNM [address] [place] [address] 04/29/2024 2:20 PM EDT Office Visit Dermatology, [place] [address] [place] [address] Julee Gomes PA-C [address] [place] [address] [place] [address] 05/19/2024 12:10 PM EST Office Visit Family [facility] [address] [place] [phone] Mar Pittman, DO [address] [place] [address] Pending Results Name Type Priority Associated Diagnoses Date /Time CBC WITH WBC DIFFERENTIAL AND ANEMIA REFLEX WORKUP Lab Routine Antepartum anemia complicating 08/02/2023 2:08 PM EST ANEMIA CBC Lab Routine Antepartum anemia complicating 08/02/2023 2:08 PM EST DIFFERENTIAL, AUTOMATED Lab Routine Antepartum anemia complicating 08/02/2023 2:08 PM EST ANEMIA REFLEX CHEMISTRY HOLD Lab Routine Antepartum anemia complicating 08/02/2023 2:08 PM EST Health Maintenance Due Date Last Done Comments Hepatitis B (1 of 3 - 3-dose series) 1995 COVID-19 Vaccine (4 - 2022-2 4 season) [...] as of this encounter Visit Diagnoses Diagnosis Antepartum anemia complicating Anemia, antepartum documented in this encounter Care Teams Primer Assembler Relationship Specialty Start Date End Date Mar Pittman DO [address] [place] [address] PCP - General Family Medicine 05/01/22 documented as of this encounter
--- OUTSIDE RECORDS SUMMARY | 2023-09-27 15:08 | External Medical Summary | Summary of Care ---
Author Name Unknown Organization [facility] Address [address] [place] [address] Phone [phone] Care Team Providers Care Volcanologist Name Role Phone Mar Pittman DO Primary Care Provider Reason for Visit * Reason Comments Return Visit Encounter Details Date Type Department Care Team (Late st Contact Info) Description 08/02/2023 2:15 PM EST Office Visit Gynecology/Obstetric s [facility] [address] [facility] [place] [address] Joanne House CRNP [address] [place] [address] Normal in third trimester*; Pyelectasis; Antepartum anemia complicating Allergies Active Allergy Reactions [...] mRNA, LNP-s, No Pre serve, 2-Dose Series ([employer]) 07/27/2020,07/06/2020 COVID-19, mRNA, LNP-s, PF, B ooster, [...] money to get more. Never true 02/19/2023 [place] Depression Scale Answer Date Recorded [place] Depression Scale Total 7 07/05/2023 The thought [...] Sign Reading Time Taken Comments Blood Pressure 118/70 08/02/2023 1:43 PM EST Pulse - - Temperature - - Respiratory Rate - - Oxygen Saturation - - Inhaled Oxygen Concentration - - Weight 72.4 kg (159 lb 9.6 oz) 08/02/2023 1:43 P M EST Height - - Body Mass Index 26.56 05/17/2023 9:06 AM EST documented in this encounter Progress Notes * Joanne House CRNP - 08/02/2023 1:56 PM EST 32w5d Right ankle with trace edema, started yesterday. No redness or warmth, no pain. Advised to monitor,call with changes. Does not have appearance of DVT at this time, reassurance given. Baby moving well. No contractions or bleeding. Taking iron as directed, repeat CBC today. U/s today for growth and f/u pyelectasis- per tech kidneys are WNL. GUALBERTO Astudillo documented in this encounter Nursing Notes * Kaylin Perez LPN - 08/02/2023 1:47 PM EST 32w5d Denies vaginal bleeding/rom + movement Rt ankle/foot swelling US today- JACKIE 17.9cm Growth 50% documented in this encounter Plan of Treatment Upcoming Encounters Date Type Department Care Team (Late st Contact Info) Description 08/02/2023 2:30 PM EST [facility] [address] [facility] [place] [phone] GrovesBrandi zhou Rebecca [facility] [place] [address] Antepartum anemia complicating 08/17/2023 8:30 AM EST Office Visit Gynecology/Obstetric s Anthony Chapins [address] [facility] [place] [address] Ivory Falcon, DNP, CNM [address] [facility] [place] [address] 04/29/2024 2:20 PM EDT Office Visit [facility], [place] [address] [place] [address] Juele Gomes PARebecca [address] [place] [address] [place] [address] 05/19/2024 12:10 PM EST Office Visit Family [facility], [place] [address] [place] [facility] [phone] Mar Pittman, DO [address] [place] [address] Pending Results Name Type Priority Associated Diagnoses Date /Time CBC WITH WBC DIFFERENTIAL AND ANEMIA REFLEX WORKUP Lab Routine Antepartum anemia complicating 08/02/2023 2:08 PM EST Scheduled Orders Name Type Priority Associated Diagnoses Orde r Schedule CBC WITH WBC DIFFERENTIAL AND ANEMIA REFLEX WORKUP Lab Routine Antepartum anemia complicating Expected: 08/02/2023 (Approximate), Expires: 08/02/2024 Health Maintenance Due Date Last Done Comments Hepatitis B (1 of 3 - 3-dose series) 1995 COVID-19 Vaccine (2022-2 4 season) 2023 05/11/2021, [...] Diagnoses Diagnosis Normal in third trimester- Primary Pyelectasis Other specified disorder of kidney and ureter Antepartum anemia complicating Anemia, antepartum Antepartum anemia complicating Anemia, antepartum documented in this encounter Care Teams Volcanologist Relationship Specialty Start Date End Date Mar Pittman DO [address] [place] [address] PCP - General Family Medicine 05/01/22 documented as of this encounter
--- OUTSIDE RECORDS SUMMARY | 2023-09-27 15:08 | External Medical Summary ---
Author Name Unknown Address Unknown Organization [id number]:LABORATORY C - [address] [place] [address] Laboratory Report Ordering Provider Test Date Status BARTOLO VALLADARES 07/05/2023 14:20:55 Final Observation Date Value Abnormality Reference (Units ) Status Ferritin 07/05/2023 14:20:55 8 Below low normal 13- 150 (ng/mL) Final Performing Location LABORATORY [facility] [place] - [address] [place] [address]
--- OUTSIDE RECORDS SUMMARY | 2023-09-27 15:08 | External Medical Summary ---
Author Name Unknown Address Unknown Organization [id number]:LABORATORY C - [address] [place] [address] [place] [address] Laboratory Report Ordering Provider Test Date Status BARTOLO VALLADARES 07/05/2023 14:20:55 Final Observation Date Value Abnormality Reference (Units ) Status TSH 07/05/2023 14:20:55 1.33 0.27-4.20 (uIU/mL) Final Performing Location LABORATORY [facility] - [address] [place] [address]
--- OUTSIDE RECORDS SUMMARY | 2023-09-27 15:08 | External Medical Summary ---
Author Name Unknown Address Unknown Organization [id number]:LABORATORY [facility] [place] - [facility] [address] [facility] [address] Laboratory Report Ordering Provider Test Date Status JACQUELYNBACKER 07/05/2023 14:20:55 Final Observation Date Value Abnormality Reference (Units ) Status Retic, % (auto) 07/05/2023 14:20:55 1.91 Above high normal 0.80-1.90 (%) Final Reticulocytes, Absolute 07/05/2023 14:20:55 72.4 31.3-100.1 (K/uL) Final Reticulocyte fraction, immature 07/05/2023 14:20:55 13.6 2.5-20.6 (%) Final Reticulocyte HGB 07/05/2023 14:20:55 34.1 29.7-37.4 (pg) Final Performing Location LABORATORY [facility] [place] - [facility] [address] [facility] [address]
--- OUTSIDE RECORDS SUMMARY | 2023-09-27 15:08 | External Medical Summary ---
Author Name Unknown Address Unknown Organization [id number]:LABORATORY [facility] [place] - [address] [address] [facility] [address] Laboratory Report Ordering Provider Test Date Status JACQUELYNBACKER 07/05/2023 14:20:55 Final Observation Date Value Abnormality Reference (Units ) Status SYNC LEUKOCYTES IN BLOOD BY AUTOMATED COUNT 07/05/2023 14:20:55 11.15 Above high normal 4.00-10.80 (K/uL) Final Segs 07/05/2023 14:20:55 76.6 Above high normal 40.0-75.0 (%) Final Lymphs % 07/05/2023 14:20:55 16.1 Below low normal 18.0-42.0 (%) Final Monos 07/05/2023 14:20:55 5.0 1.0-11.0 (%) Final Eosinophils 07/05/2023 14:20:55 0.3 0.0-6.0 (%) Final Basos 07/05/2023 14:20:55 0.4 0.0-2.0 (%) Final Immature Granulocyte, Percent 07/05/2023 14:20:55 1.6 0.0-2.0 (%) Final Absolute Segs 07/05/2023 14:20:55 8.55 Above high normal 1.80-7.70 (K/uL) Final Lymphs, absolute 07/05/2023 14:20:55 1.79 1.00-4.80 (K/ul) Final Monos, Abs 07/05/2023 14:20:55 0.56 0.00-1.10 (K/uL) Final Eos, Abs 07/05/2023 14:20:55 0.03 0.00-0.70 (K/uL) Final Basos, Abs 07/05/2023 14:20:55 0.04 0.00-0.20 (K/uL) Final Immature Granulocytes, Number 07/05/2023 14:20:55 0.18 0.00-0.20 (K/uL) Final Performing Location LABORATORY [facility] [place] - [facility] [address] [facility] [address]
--- OUTSIDE RECORDS SUMMARY | 2023-09-27 15:08 | External Medical Summary | Summary of Care ---
Author Name Unknown Organization [facility] Address [address] [place] [address] Phone [phone] Care Team Providers Care Fish Farmer Name Role Phone Mar Pittman Primary Care Provider Reason for Visit * Reason Onset Date Comments Test Results 07/06/2023 Encounter Details Date Type Department Care Team (Late st Contact Info) Description 07/06/2023 Telephone Gynecology/Obstetrics [facility] [address] [place] [address] Nicole Sommer CRNP [address] [place] [address] Test Results Allergies Active Allergy Reactions Criticality Noted Date Comments Codeine Hives 09/08/2021 Penicillins Hives 09/08/2021 documented as of this encounter (statuses as of 07/06/2023) Medications Medication Sig Dispensed Refills Start Date [...] as of this encounter (statuses as of 07/06/2023) Active Problems Problem Noted Date Diagnosed Date [...] as of this encounter (statuses as of 07/06/2023) Immunizations Name Administration Dates Next Due COVID-19 mRNA, LNP-s, No Pre serve, 2-Dose Series (Omnireliant) 07/27/2020,07/06/2020 COVID-19, mRNA, LNP-s, PF, B ooster, [...] money to get more. Never true 02/19/2023 [place] Depression Scale Answer Date Recorded [place] Depression Scale Total 7 07/05/2023 The thought [...] encounter Miscellaneous Notes * Telephone Encounter - Myesha Whittington MED ASSIST - 07/06/2023 1:36 PM EST Appt scheduled, pt aware * Telephone Encounter - Myesha Whittington MED ASSIST - 07/06/2023 1:09 PM EST LMOM * Telephone Encounter - Keila Osborne LPN - 07/06/2023 8:56 AM EST Patient notified of abnormal glucola. The order has been placed in [facility]. Patient. advised to be NPO after 10pm the night before the test.The patient must stay on the premises for the entire time of the test. Patient counseled to take something to eat for after testing. Please call her to schedule testing. She said if today best to call after 11:30 today. * Telephone Encounter - Nicole Sommer CRNP - 07/06/2023 7:58 AM EST Elevated 1 hr glucose, please notify pt and have her schedule 3 hr GTT. Mild anemia on blood count; sending Rx for iron supplementation. Take at least 1 hr apart from vitamin and food w/dairy. Best taken with a source of vitamin C. Can take colace OTC 1-2x/day if constipation occurs. Will recheck CBC in 4 weeks. GUALBERTO Peoples documented in this encounter Plan of Treatment Upcoming Encounters Date Type Department Care Team (Late st Contact Info) Description 07/11/2023 7:40 AM EST Laboratory Laboratory, [facility] [phone] [facility] [address] [facility] [place], [place] [address] 07/19/2023 2:15 PM EST Office Visit Gynecology/Obstetrics [address] [place] [address] Nicole Sommer CRNP [address] [facility] [place] [address] 08/02/2023 1:30 PM EST Imaging Radiology [facility] 2nd [facility] [place] [address] [facility] [place] [address] 08/02/2023 2:15 PM EST Office Visit Gynecology/Obstetrics [facility] [address] [facility] [address] Joanne House CRNP [address] [facility] [place], [place] [address] 04/29/2024 2:20 PM EDT Office Visit Dermatology, [place] [address] [address] [facility], [place] [address] Julee Gomes PA-C [address] [place] [address] [place] [address] 05/19/2024 12:10 PM EST Office Visit Family Practice, [place] [address] [facility], [place] [phone] Mar Pittman DO [address] [place] [address] Scheduled Orders Name Type Priority Associated Diagnoses Orde r Schedule GESTATIONAL GLUCOSE TOLERANCE, 3 HOUR Lab Routine Elevated glucose tolerance test Expected: 07/06/2023 (Approximate), Expires: 07/06/2024 Health Maintenance Due Date Last Done Comments [...] encounter Visit Diagnoses Diagnosis Antepartum anemia complicating - Primary Anemia, antepartum Elevated glucose tolerance test Impaired glucose tolerance test documented in this encounter Care Teams Fish Farmer Relationship Specialty Start Date End Date Mar Pittman DO [address] [place] [address] PCP - General Family Medicine 05/01/22 documented as of this encounter
--- OUTSIDE RECORDS SUMMARY | 2023-09-27 15:08 | External Medical Summary ---
Author Name Unknown Address Unknown Organization [id number]:LABORATORY [facility] [place] - [facility] [address] [facility] [place] [address] Laboratory Report Ordering Provider Test Date Status JACQUELYNBACKER 07/05/2023 14:20:55 Final Observation Date Value Abnormality Reference (Units ) Status WBC, Total 07/05/2023 14:20:55 11.15 Above high normal 4 .00-10.80 (K/uL) Final RBC 07/05/2023 14:20:55 3.77 3.85-5.15 (M/uL) Final Hemoglobin 07/05/2023 14:20:55 11.7 Below low normal 12 .0-15.3 (g/dL) Final Anemia reflex testing trigge rs on a HGB < 12.0 for Females and HGB < 13.0 for Males in accordance with the WHO Anemia Guidelines
Anemia reflex testing triggers on a HGB < 12.0 for Females and HGB < 13.0 for Males in accordance with the WHO Anemia Guidelines HCT 07/05/2023 14:20:55 35.9 Below low normal 36. 0-45.2 (%) Final MCV 07/05/2023 14:20:55 95.2 81.5-97.5 (fL) Final MCH 07/05/2023 14:20:55 31.0 27.0-34.0 (pg) Final MCHC 07/05/2023 14:20:55 32.6 32.0-36.0 (g/dL) Final RDW 07/05/2023 14:20:55 12.5 11.5-15.5 (%) Final Platelets 07/05/2023 14:20:55 237 140-400 (K /uL) Final MPV 07/05/2023 14:20:55 9.6 6.6-11.1 ( fL) Final Nucleated erythrocytes/100 leukocytes [Ratio] in Blood by Automated count 07/05/2023 14:20:55 0 <=0 (/100 WBCs) Final Performing Location LABORATORY [facility] [place] - [address] [facility] [place] [address]
--- OUTSIDE RECORDS SUMMARY | 2023-09-27 15:08 | External Medical Summary | Summary of Care ---
Author Name Unknown Organization [facility] Address [address] [place] [address] Phone [phone] Care Team Providers Care Jewelry Dipper Name Role Phone Mar Pittman Primary Care Provider [phone] Reason for Visit * Reason Comments Outpatient Testing Encounter Details Date Type Department Care Team (Late st Contact Info) Description 07/05/2023 1:20 PM EST Laboratory Laboratory, [facility] 132 [place] [phone] [facility] [address] [place] [address] Normal in second trimester Allergies Active Allergy Reactions Criticality Noted Date Comments Codeine Hives 09/08/2021 Penicillins Hives 09/08/2021 documented as of this encounter (statuses as of 07/05/2023) Medications Medication Sig Dispensed Refills Start Date End Date Status 28-0.8 MG Oral Tablet Take by mouth. 0 Active documented as of this encounter (statuses as of 07/05/2023) Active Problems Problem Noted Date Diagnosed Date [...] as of this encounter (statuses as of 07/05/2023) Immunizations Name Administration Dates Next Due COVID-19 [...] money to get more. Never true 02/19/2023 [place] Depression Scale Answer Date Recorded [place] Depression Scale Total 7 07/05/2023 The thought [...] Care Team (Late st Contact Info) Description 07/19/2023 2:15 PM EST Office Visit Gynecology/Obstetrics [facility] [address] [place] [address] Nicole Sommer CRNP [address] [place] [address] 08/02/2023 1:30 PM EST Imaging Radiology [facility] 2nd Floor, [place] [address] [place] [address] 08/02/2023 2:15 PM EST Office Visit Gynecology/Obstetrics [facility] [address] [place] [address] Joanne House CRNP [address] [place] [address] 04/29/2024 2:20 PM EDT [place] [address] [place] [address] Julee Gomes PA-C [address] [place] [address] [place] [address] 05/19/2024 12:10 PM EST Office Visit Family [place] [address] [address] [facility], [place] [phone] Mar Pittman DO [address] [place] [address] Pending Results Name Type Priority Associated Diagnoses Date /Time 50-G GESTATIONAL GLUCOSE, 1 HOUR Lab Routine Normal in second trimester 07/05/2023 2:20 PM EST SYPHILIS ANTIBODY SCREEN WITH REFLEX TO RPR Lab Routine Normal in second trimester 07/05/2023 2:20 PM EST CBC WITH WBC DIFFERENTIAL AND ANEMIA REFLEX WORKUP Lab Routine Normal in second trimester 07/05/2023 2:20 PM EST SYPHILIS ANTIBODY SCREEN Lab Routine Normal in second trimester 07/05/2023 2:20 PM EST ANEMIA CBC Lab Routine Normal in second trimester 07/05/2023 2:20 PM EST DIFFERENTIAL, AUTOMATED Lab Routine Normal in second trimester 07/05/2023 2:20 PM EST ANEMIA REFLEX CHEMISTRY HOLD Lab Routine Normal in second trimester 07/05/2023 2:20 PM EST Health Maintenance Due Date Last [...] this encounter Visit Diagnoses Diagnosis Normal in second trimester documented in this encounter Care Teams Jewelry Dipper Relationship Specialty Start Date End Date Mar Pittman DO [address] [place] [address] PCP - General Family Medicine 05/01/22 documented as of this encounter
--- OUTSIDE RECORDS SUMMARY | 2023-09-27 15:08 | External Medical Summary ---
Author Name Unknown Address Unknown Organization K0G:LABORATORY [facility] [place] 57-10 - [address] [place] [address] Laboratory Report Ordering Provider Test Date Status BARTOLO VALLADARES 07/11/2023 08:53:13 Final Observation Date Value Abnormality Reference (Units ) Status Glucose [Mass/volume] in Serum or Plasma --1 hour post dose glucose 07/11/2023 08:53:13 159 70-179 (mg/dL) Final Performing Location LABORATORY [facility] [place] 57-1 0 - [address] [place] [address]
--- OUTSIDE RECORDS SUMMARY | 2023-09-27 15:08 | External Medical Summary ---
Author Name Unknown Address Unknown Organization [id number]:LABORATORY [facility] [place] 57[address] - [address] [place] [address] Laboratory Report Ordering Provider Test Date Status JACQUELYNBARTOLO 07/11/2023 10:51:27 Final Observation Date Value Abnormality Reference (Units ) Status Glucose [Mass/volume] in Serum or Plasma --3 hours post dose glucose 07/11/2023 10:51:27 73 70-139 (mg/dL) Final Performing Location LABORATORY [facility] [place] 57-1 0 - [address] [place] [address]
--- OUTSIDE RECORDS SUMMARY | 2023-09-27 15:08 | External Medical Summary ---
Author Name Unknown Address Unknown Organization K01:LABORATORY [facility] [place] - [address] [facility] [address] Laboratory Report Ordering Provider Test Date Status SU GALINDOCARITO 08/02/2023 14:08:29 Final Observation Date Value Abnormality Reference (Units ) Status SYNC LEUKOCYTES IN BLOOD BY AUTOMATED COUNT 08/02/2023 14:08:29 10.05 4.00-10.80 (K/uL) Final Segs 08/02/2023 14:08:29 73.3 40.0-75.0 (%) Final Lymphs % 08/02/2023 14:08:29 15.8 Below low normal 18.0-42.0 (%) Final Monos 08/02/2023 14:08:29 5.7 1.0-11.0 (%) Final Eosinophils 08/02/2023 14:08:29 0.3 0.0-6.0 (%) Final Basos 08/02/2023 14:08:29 0.6 0.0-2.0 (%) Final Immature Granulocyte, Percent 08/02/2023 14:08:29 4.3 Above high normal 0.0-2.0 (%) Final Absolute Segs 08/02/2023 14:08:29 7.37 1.80-7.70 (K/uL) Final Lymphs, absolute 08/02/2023 14:08:29 1.59 1.00-4.80 (K/ul) Final Monos, Abs 08/02/2023 14:08:29 0.57 0.00-1.10 (K/uL) Final Eos, Abs 08/02/2023 14:08:29 0.03 0.00-0.70 (K/uL) Final Basos, Abs 08/02/2023 14:08:29 0.06 0.00-0.20 (K/uL) Final Immature Granulocytes, Number 08/02/2023 14:08:29 0.43 Above high normal 0.00-0.20 (K/uL) Final Performing Location LABORATORY [facility] [place] - [address] [facility] [address]
--- OUTSIDE RECORDS SUMMARY | 2023-09-27 15:08 | External Medical Summary | Summary of Care ---
Author Name Unknown Organization [facility] Address [address] [place] [address] Phone [phone] Care Team Providers Care Florist Name Role Phone Mar Pittman Primary Care Provider Reason for Visit * Reason Comments Return Visit Encounter Details Date Type Department Care Team (Late st Contact Info) Description 06/07/2023 1:30 PM EST Office Visit Gynecology/Obstetric s [place] [address] [facility] [place] [address] Nicole Sommer CRNP [address] [facility] [place] [address] Normal in second trimester*; Pyelectasis Allergies Active Allergy Reactions Criticality Noted Date Comments Codeine Hives 09/08/2021 Penicillins Hives 09/08/2021 documented as of this encounter (statuses as of 06/07/2023) Medications Medication Sig Dispensed Refills Start Date End Date Status 28-0.8 MG Oral Tablet Take by mouth. 0 Active documented as of this encounter (statuses as of 06/07/2023) Active Problems Problem Noted Date Diagnosed Date Pyelectasis 05/10/2023 Overview: pyelectasis at 20w u/s. Recheck in 3rd trimester Normal 03/20/2023 H/O dysplastic nevus 03/12/2023 Overview: Mildly atypical nevus (L upper back) Family history of breast cancer in mother 03/10/ 2022 Overview: Mom diagnosed at age 37, unsure if genetic testing was completed. She's s/p bilateral mastectomy Estimated Date of Delivery Comme nts Yes 09/22/2023 Based on last me nstrual period of 12/16/2022 documented as of this encounter (statuses as of 06/07/2023) Immunizations Name Administration Dates Next Due COVID-19 mRNA, LNP-s, No Pre serve, 2-Dose Series (Coolest Cooler) 07/27/2020,07/06/2020 COVID-19, mRNA, LNP-s, PF, B ooster, 100mcg/0.5mg (Moderna) 05/11/2021 SEASONAL INFLUENZA, PF, 6 M & Above, IM , (FLULAVAL or FLUZONE) 04/30/2023 documented as of this encounter Social History [...] money to get more. Never true 02/19/2023 [place] Depression Scale Answer Date Recorded [place] Depression Scale Total 6 02/19/2023 The thought [...] Sign Reading Time Taken Comments Blood Pressure 118/66 06/07/2023 1:20 PM EST Pulse - - Temperature - - Respiratory Rate - - Oxygen Saturation - - Inhaled Oxygen Concentration - - Weight 68 kg (150 lb) 06/07/2023 1:20 PM EST Height - - Body Mass Index 24.96 05/17/2023 9:06 AM EST documented in this encounter Progress Notes * Kaylin Perez LPN - 06/07/2023 1:20 PM EST 24w5d Denies vaginal bleeding/rom + movement No new concerns * Nicole Sommer CRNP - 06/07/2023 1:19 PM EST 24w5d Doing well, + movement. No cramping, bleeding. Aware of pyelectasis - discussed. Will obtain repeat u/s in 3rd trimester. Labs discussed, ordered for next visit in 4 weeks. Discussed Tdap at 28 wks. GUALBERTO Peoples documented in this encounter Plan of Treatment Upcoming Encounters Date Type Department Care Team (Late st Contact Info) Description 07/05/2023 1:20 PM EST [facility] [address] [place] [phone] [facility] [address] [place] [address] 07/05/2023 1:30 PM EST Office Visit Gynecology/Obstetrics [facility] [address] [place] [address] Nicole Sommer CRNP [address] [place] [address] 04/29/2024 2:20 PM EDT Office [address] [address] Julee Gomes, PAMacC [address] [place] [address] [place] [address] 05/19/2024 12:10 PM EST Office Visit [facility] [address] [place] [phone] Mar Pittman DO [address] [place] [address] Scheduled Orders Name Type Priority Associated Diagnoses Orde r Schedule 50-G GESTATIONAL GLUCOSE, 1 HOUR Lab Routine Normal in second trimester Expected: 06/21/2023 (Approximate), Expires: 06/07/2024 SYPHILIS ANTIBODY SCREEN WITH REFLEX TO RPR Lab Routine Normal in second trimester Expected: 06/21/2023 (Approximate), Expires: 06/07/2024 CBC WITH WBC DIFFERENTIAL AND ANEMIA REFLEX WORKUP Lab Routine Normal in second trimester Expected: 06/21/2023 (Approximate), Expires: 06/07/2024 Health Maintenance Due Date Last Done Comments Hepatitis B (1 of 3 - 3-dose series) 1995 DTaP,Tdap,and Td Vaccines (1 - Tdap) 2014 COVID-19 Vaccine (2022-2 4 season) 2023 05/11/2021, 07/27/2020, 07/06/2020 Depression Screening 05/17/2024 05/17/2023 Pap Smear 09/08/2024 09/08/2021 Influenza Vaccine (FLU shot) Completed 04/30/2023 GARDASIL-HPV [...] encounter Visit Diagnoses Diagnosis Normal in second trimester- Primary Pyelectasis Other specified disorder of kidney and ureter documented in this encounter Care Teams Florist Relationship Specialty Start Date End Date Mar Pittman DO [address] [place] [address] PCP - General Family Medicine 05/01/22 documented as of this encounter
--- OUTSIDE RECORDS SUMMARY | 2023-09-27 15:08 | External Medical Summary | Summary of Care ---
Author Name Unknown Organization [facility] Address [address] [place] [address] Phone [phone] Care Team Providers Care Heel Gouger Name Role Phone Mar Pittman Primary Care Provider [phone] Reason for Visit * Reason Comments Return Visit Encounter Details Date Type Department Care Team (Late st Contact Info) Description 07/19/2023 2:15 PM EST Office Visit Gynecology/Obstetric s [facility] [address] [facility] [place] [address] BackNicole velasquez CRNP [address] [facility] [place], [facility] Log[facility] [address] Normal in third trimester*; Pyelectasis; Antepartum anemia complicating Allergies Active Allergy Reactions Criticality Noted Date Comments Codeine Hives 09/08/2021 Penicillins Hives 09/08/2021 documented as of this encounter (statuses as of 07/19/2023) Medications Medication Sig Dispensed Refills Start Date [...] as of this encounter (statuses as of 07/19/2023) Active Problems Problem Noted Date Diagnosed Date [...] as of this encounter (statuses as of 07/19/2023) Immunizations Name Administration Dates Next Due COVID-19 mRNA, LNP-s, No Pre serve, 2-Dose Series ([employer]) 07/27/2020,07/06/2020 COVID-19, mRNA, LNP-s, PF, B ooster, [...] money to get more. Never true 02/19/2023 [place] Depression Scale Answer Date Recorded [place] Depression Scale Total 7 07/05/2023 The thought [...] Sign Reading Time Taken Comments Blood Pressure 104/66 07/19/2023 2:18 PM EST Pulse - - Temperature - - Respiratory Rate - - Oxygen Saturation - - Inhaled Oxygen Concentration - - Weight 70.8 kg (156 lb) 07/19/2023 2:18 PM EST Height - - Body Mass Index 25.96 05/17/2023 9:06 AM EST documented in this encounter Progress Notes * Nicole Sommer CRNP - 07/19/2023 2:34 PM EST 30w5d Doing well, baby is active. No ctx, leaking/bleeding. Passed 3 hr GTT. FMLA paperwork given to nursing staff to complete. She is concerned w/lack of weight gain since last appt, feels she is eating enough. Reassured, normal fundal height today. Has U/S scheduled in 2 weeks. GUALBERTO Peoples * Kaylin Perez LPN - 07/19/2023 2:19 PM EST 30w5d Denies vaginal bleeding/rom + movement No new concerns documented in this encounter Plan of Treatment Upcoming Encounters Date Type Department Care Team (Late st Contact Info) Description 08/02/2023 1:30 PM EST Imaging Radiology [facility] 2nd [facility], [address] [place] [address] 08/02/2023 2:15 PM EST Office Visit Gynecology/Obstetrics [facility] [address] [place] [address] Joanne House CRNP [address] [place] [address] 04/29/2024 2:20 PM EDT Office Visit Dermatology, [place] [address] [address] [facility], [place] [address] Julee Gomes PA-C [address] [place] [address] [place] [address] 05/19/2024 12:10 PM EST Office Visit Family [facility], [place] [address] [facility], [place] [phone] Mar Pittman DO [address] [facility], [place] [address] Health Maintenance Due Date Last Done Comments [...] and ureter Antepartum anemia complicating Anemia, antepartum documented in this encounter Care Teams Heel Gouger Relationship Specialty Start Date End Date Mar Pittman DO [address] [place] [address] PCP - General Family Medicine 05/01/22 documented as of this encounter
--- OUTSIDE RECORDS SUMMARY | 2023-09-27 15:08 | External Medical Summary | Summary of Care ---
Author Name Unknown Organization [facility] Address [address] [place] [address] Phone [phone] Care Team Providers Care Automotive Parts Counterperson Name Role Phone Mar Pittman Primary Care Provider [phone] Reason for Visit * Reason Comments Outpatient Testing Encounter Details Date Type Department Care Team (Late st Contact Info) Description 07/11/2023 7:40 AM EST Laboratory Laboratory, [facility] [address] [place] [address] [facility] [address] [place] [address] Elevated glucose tolerance test Allergies Active Allergy Reactions Criticality Noted Date Comments Codeine Hives 09/08/2021 Penicillins Hives 09/08/2021 documented as of this encounter (statuses as of 07/11/2023) Medications Medication Sig Dispensed Refills Start Date [...] as of this encounter (statuses as of 07/11/2023) Active Problems Problem Noted Date Diagnosed Date Antepartum anemia complicating 01/05/2 024 Overview: Hgb 11.7, iron sent - [...] as of this encounter (statuses as of 07/11/2023) Immunizations Name Administration Dates Next Due COVID-19 mRNA, LNP-s, No Pre serve, 2-Dose Series ([employer]) 07/27/2020,07/06/2020 COVID-19, mRNA, LNP-s, PF, B ooster, [...] money to get more. Never true 02/19/2023 [place] Depression Scale Answer Date Recorded [place] Depression Scale Total 7 07/05/2023 The thought [...] 07/19/2023 2:15 PM EST Office Visit Gynecology/Obstetrics [facility] [address] [place] [address] Nicole Sommer CRNP [address] [facility] [place] [address] 08/02/2023 1:30 PM EST Imaging Radiology [facility] 2nd Floor, [place] [facility] [place] [address] 08/02/2023 2:15 PM EST Office Visit Gynecology/Obstetrics [facility] [address] [facility] [place] [address] Joanne House CRNP [address] [place] [address] 04/29/2024 2:20 PM EDT Office Visit Dermatology, [place] [address] [address] [facility], [place] [address] Julee Gomes PA-C [address] [place] [address] [place] [address] 05/19/2024 12:10 PM EST Office Visit Family [facility], [place] [address] [address] [facility] [phone] Mar Pittman DO [address] [facility], [place] [address] Pending Results Name Type Priority Associated Diagnoses Date /Time GESTATIONAL GLUCOSE TOLERANCE, 3 HOUR Lab Routine Elevated glucose tolerance test 07/11/2023 7:49 AM EST 100-G GESTATIONAL GLUCOSE, 2 HOUR Lab Routine Elevated glucose tolerance test 07/11/2023 9:50 AM EST 100-G GESTATIONAL GLUCOSE, 3 HOUR Lab Routine Elevated glucose tolerance test 07/11/2023 10:51 AM EST Health Maintenance Due Date Last Done [...] Not on filedocumented as of this encounter Procedures Procedure Name Priority Date/Time Associated Diagnosis Comments 100-G GESTATIONAL GLUCOSE, 1 HOUR Routine 07/11/2023 8:53 AM EST Elevated glucose tolerance test 100-G GESTATIONAL GLUCOSE, FASTING Routine 07/11/2023 7:49 AM EST Elevated glucose tolerance test documented in this encounter Results * 100-G GESTATIONAL GLUCOSE, 1 HOUR (07/11/2023 8:53 AM EST) 100-g Gestational Glucose, 1 Hour 159 70 - 179 mg/dL 07/11/2023 9:28 AM EST [address]ORY [facility] 57-10 Blood Venous blood specimen / Unknown Venipuncture / Unknown 07/11/2023 8:53 AM EST 07/11/2023 8:53 AM EST Nicole Aj Ros [facility] RDER[facility]LES LABORATORY [place] 57-10 [address] [place] [address] * 100-G GESTATIONAL GLUCOSE, FASTING (07/11/2023 7:49 AM EST) 100-g Gestational Glucose, Fasting 73 70 - 94 mg/dL 07/11/2023 9:04 AM EST LABORATORY [place] 57-10 Blood Venous blood specimen / Unknown Venipuncture / Unknown 07/11/2023 7:49 AM EST 07/11/2023 7:49 AM EST Narrative LABORATORY [facility] [place] 57-10 - 07/11/2023 9:04 AM EST Based on ACOG guideline, gestational diabetes mellitus is diagnosed when any of the following is met: Fasting is greater than or equal to 95 mg/dL 1 hour is greater than or equal to 180 mg/dL 2 hour is greater than or equal to 155 mg/dL 3 hour is greater than or equal to 140 mg/dL Nicole Vargaschiquis [facility] LABORATORY [place] 57-10 [address] [place] [address] documented in this encounter Visit Diagnoses Diagnosis Elevated glucose tolerance test Impaired glucose tolerance test documented in this encounter Care Teams Automotive Parts Counterperson Relationship Specialty Start Date End Date Mar Pittman DO [address] [place] [address] PCP - General Family Medicine 05/01/22 documented as of this encounter
--- OUTSIDE RECORDS SUMMARY | 2023-09-27 15:08 | External Medical Summary ---
Author Name Unknown Address Unknown Organization [id number]:LABORATORY [facility] - [address] [place] [address] Laboratory Report Ordering Provider Test Date Status BARTOLO VALLADARES 07/05/2023 14:20:55 Final Observation Date Value Abnormality Reference (Units ) Status Vitamin B12 07/05/2023 14:20:55 [phone] (pg/mL) Final Performing Location LABORATORY [facility] - [address] [place] [address]
--- OUTSIDE RECORDS SUMMARY | 2023-09-27 15:08 | External Medical Summary ---
Author Name Unknown Address Unknown Organization [id number]:[place] [place] [address] [place] [address] Laboratory Report Ordering Provider Test Date Status JACQUELYNBARTOLO 07/05/2023 14:20:55 Final Observation Date Value Abnormality Reference (Units ) Status Glucose [Moles/volume] in Serum or Plasma --1 hour post 50 g glucose PO 07/05/2023 14:20:55 142 Above high normal 70-129 (mg/dL) Final Performing Location [facility] [place] [address] [place] [address]
--- OUTSIDE RECORDS SUMMARY | 2023-09-27 15:08 | External Medical Summary | Summary of Care ---
Author Name Unknown Organization [facility] Address [address] [place] [address] Phone [phone] Care Team Providers Care Aviation Program Manager Name Role Phone Mar Pittman Primary Care Provider [phone] Reason for Visit * Reason Comments Return Visit Encounter Details Date Type Department Care Team (Late st Contact Info) Description 07/05/2023 1:30 PM EST Office Visit Gynecology/Obstetric s [facility] [address] [facility] [place] [address] BackNicole velasquez CRNP [address] [facility] [address] Normal in third trimester*; Pyelectasis; Need for prophylactic vaccination with combined uvpgaiubde-uhayemv-ql rtussis (DTP) vaccine; Breast feeding status of mother Allergies Active Allergy Reactions Criticality Noted Date Comments Codeine Hives 09/08/2021 Penicillins Hives 09/08/2021 documented as of this encounter (statuses as of 07/05/2023) Medications Medication Sig Dispensed Refills Start Date End Date Status 28-0.8 MG Oral Tablet Take by mouth. 0 Active Breast PumpIndications:Breas t feeding status of mother Double electric pump, [facility] 09/22/23, Z39.1 1 Each 0 07/05/2023 Active documented as of this encounter (statuses [...] mRNA, LNP-s, No Pre serve, 2-Dose Series ([employer]) 07/27/2020,07/06/2020 COVID-19, mRNA, LNP-s, PF, B ooster, [...] money to get more. Never true 02/19/2023 [place] Depression Scale Answer Date Recorded [place] Depression Scale Total 7 07/05/2023 The thought [...] Sign Reading Time Taken Comments Blood Pressure 114/68 07/05/2023 1:25 PM EST Pulse - - Temperature - - Respiratory Rate - - Oxygen Saturation - - Inhaled Oxygen Concentration - - Weight 71.2 kg (157 lb) 07/05/2023 1:25 PM EST Height - - Body Mass Index 26.13 05/17/2023 9:06 AM EST documented in this encounter Progress Notes * aKylin Perez LPN - 07/05/2023 1:24 PM EST 28w5d Denies vaginal bleeding/rom + movement No new concerns Gtt today Tdap today * Nicole Sommer CRNP - 07/05/2023 1:24 PM EST 28w5d Baby is moving well. No ctx/leaking/bleeding. Completing labs, accepts Tdap. Discussed exercise in , [facility]. Plan to repeat u/s in 4 weeks to recheck pyelectasis. Rx provided for breast pump. Return in 2 weeks. GUALBERTO Peoples documented in this encounter Nursing Notes * Kaylin Perez LPN - 07/05/2023 1:38 PM EST Patient here for tdap injection. Patient doing well no complaints. Injection given IM as ordered. Patient tolerated well. Patient to follow up as directed. Patient instructed to call if any complications. Patient verbalized understanding of instructions given. Injection site: Left Deltoid Medication Source: Dispensed stock medication documented in this encounter Plan of Treatment Upcoming Encounters Date Type Department Care Team (Late st Contact Info) Description 07/19/2023 2:15 PM EST Office Visit Gynecology/Obstetrics [facility] [address] [facility] [place] [address] Nicole Sommer CRNP [address] [place] [address] 08/02/2023 1:30 PM EST Imaging Radiology [facility] 2nd Floor, [place] [address] [facility] [place] [address] 08/02/2023 2:15 PM EST Office Visit Gynecology/Obstetrics [facility] [address] [facility] [place] [address] Joanne House CRNP [address] [place] [address] 04/29/2024 2:20 PM EDT [place] [address] [place] [facility] [place] [address] Julee Gomes PA-C [address] [place] [address] [place] [address] 05/19/2024 12:10 PM EST Office Visit Family [place] [address] [address] [facility], [place] [phone] Mar Pittman DO [address] [place] [address] Scheduled Orders Name Type Priority Associated Diagnoses Orde r Schedule US PREG FOLLOW-UP EACH FETUS Medical Imaging Routine Normal in third trimester Pyelectasis Expected: 08/05/2023 (Approximate), Expires: 08/05/2024 Health Maintenance Due Date Last Done Comments [...] Other specified disorder of kidney and ureter Need for prophylactic vaccination with combined esjvpxywwq-hsjmcgc-wxsjzaoyl (DTP) vaccine Breast feeding status of mother care and examination of lactating mother documented in this encounter Care Teams Aviation Program Manager Relationship Specialty Start Date End Date Mar Pittman DO [address] [place] [address] PCP - General Family Medicine 05/01/22 documented as of this encounter
--- OUTSIDE RECORDS SUMMARY | 2023-09-27 15:08 | External Medical Summary ---
Author Name Unknown Address Unknown Organization K01:[facility]ORY [facility] [address] [place] [address] Laboratory Report Ordering Provider Test Date Status BARTOLO VALLADARES 07/05/2023 14:20:55 Final Observation Date Value Abnormality Reference (Units ) Status Folic Acid 07/05/2023 14:20:55 >20.0 >4.5 (ng/ mL) Final Performing Location LABORATORY C - [address] [place] [address]
--- OUTSIDE RECORDS SUMMARY | 2023-09-27 15:08 | External Medical Summary | Summary of Care ---
Author Name Unknown Organization [facility] Address [address] [place] [address] Phone [phone] Care Team Providers Care Corporate Travel Expert Name Role Phone Mar Pittman DO Primary Care Provider [phone] Reason for Visit * Reason Comments Physical-Exam Annual exam Encounter Details Date Type Department Care Team (Late st Contact Info) Description 05/17/2023 9:10 AM EST Office Visit [place] [address] [place] [address] Mar Pittman DO [address] [place] [address] Physical exam, routine* Allergies Active Allergy Reactions Criticality Noted Date Comments Codeine Hives 09/08/2021 Penicillins Hives 09/08/2021 documented as of this encounter (statuses as of 05/17/2023) Medications Medication Sig Dispensed Refills Start Date End Date Status 28-0.8 MG Oral Tablet Take by mouth. 0 Active documented as of this encounter (statuses as of 05/17/2023) Active Problems Problem Noted Date Diagnosed Date [...] as of this encounter (statuses as of 05/17/2023) Immunizations Name Administration Dates Next Due COVID-19 mRNA, LNP-s, No Pre serve, 2-Dose Series ([employer]) 07/27/2020,07/06/2020 COVID-19, mRNA, LNP-s, PF, B ooster, 100mcg/0.5mg (Moderna) 05/11/2021 SEASONAL INFLUENZA, PF, 6 M & Above, IM , (FLULAVAL or FLUZONE) 04/30/2023 documented as of this encounter Social History Tobacco Use Types Packs/Day Years Used Date Smoking Tobacco: Never Smokeless Tobacco: Never Tobacco Cessation:Counseling Given: Not Answered Alcohol Use Standard Drinks/Week Comments Not Currently [...] money to get more. Never true 02/19/2023 [place] Depression Scale Answer Date Recorded [place] Depression Scale Total 6 02/19/2023 The thought [...] Sign Reading Time Taken Comments Blood Pressure 112/58 05/17/2023 9:06 AM EST Pulse 79 05/17/2023 9:06 AM EST Temperature 36.9 C (98.4 F) 05/17/2023 9:06 AM ES T Respiratory Rate 20 05/17/2023 9:06 AM EST Oxygen Saturation 98% 05/17/2023 9:06 AM EST Inhaled Oxygen Concentration - - Weight - - Height 165.1 cm (5' 5") 05/17/2023 9:06 AM EST Body Mass Index - - documented in this encounter Progress Notes * Mar Pittman, - 05/17/2023 9:12 AM EST Subjective: Neelam Carter is a 28 year old female. Chief Complaint Patient presents with Physical-Exam Annual exam HPI: 28 yr old female here today for a physical. She is , around 22 weeks . In the beginning of her she was nauseated, but this is better. Taking She did get flu vaccine. She is an occupational therapist. We talked about Tdap and RSV vaccines toget towards the end of her . Her weight is stable. No complaints today. Needs to arrange adental visit. Pap test is up to date. PHM: Patient Active Problem List Diagnosis Code Family history of breast cancer in mother Z80.3 H/O dysplastic nevus Z86.018 Normal Z34.90 Pyelectasis N13.30 Current Outpatient Medications Medication Sig Dispense Refill 28-0.8 MG Oral Tablet Take by mouth. No current facility-administered medications for this visit. Review of patient's allergies indicates: Allergen Reactions Codeine Hives Penicillins Hives Objective: BP 112/58 | Pulse 79 | Temp 36.9 C (98.4 F) (Temporal Artery) | Resp 20 | Ht 1.651 m (5' 5") | LMP 12/16/2022 | SpO2 98% | BMI 23.13 kg/m | BSA 1.7 m Physical Exam: General: alert, healthy, and no distress Oropharynx: no exudate, no erythema, lips, buccal mucosa, and tongue normal, and mucous membranes are moist Heart: regular rate & rhythm, no murmur, and no gallops Lungs: chest symmetric with normal AP diameter, no chest deformities noted, no chest wall tenderness, lungs clear to auscultation Abdomen: abdomen soft, non-tender, normal bowel sounds, and no masses or organomegaly. + gravid Extremities: no edema ASSESSMENT/PLAN: Physical exam, routine (Primary) --normal exam. -to discuss with OB about tdap and RSV in 3rd trimester --pap up to date. --to make eye appt and dental appts. She has gotten flu vaccine already. Mar Pittman DO documented in this encounter Nursing Notes * Lorraine Ellis LPN - 05/17/2023 9:06 AM EST The patient has been properly identified by confirmation of name and date of . Chief Complaint Patient presents with Physical-Exam Annual exam documented in this encounter Plan of Treatment Upcoming Encounters Date Type Department Care Team (Late st Contact Info) Description 06/07/2023 1:30 PM EST Office Visit Gynecology/Obstetrics [facility] [address] [facility] [place] [address] BackerNicole CRNP [address] [facility] [place] [address] 04/29/2024 2:20 PM EDT Office Visit Dermatology, [place] [address] [place] [address] Julee Gomes PA-C [address] [place] [address] [place] [address] 05/19/2024 12:10 PM EST [facility] Visit [facility] [address] [facility] [phone] Mar Pittman DO [address] [facility] [address] Health Maintenance Due Date Last Done Comments Hepatitis B (1 of 3 - 3-dose series) 1995 Depression Screening 2007 DTaP,Tdap,and Td Vaccines (1 - Tdap) 2014 COVID-19 Vaccine (2022-2 4 season) 2023 05/11/2021, 07/27/2020, 07/06/2020 Pap Smear 09/08/2024 09/08/2021 Influenza Vaccine (FLU [...] as of this encounter Visit Diagnoses Diagnosis Physical exam, routine- Primary Routine general medical examination at a health care facility documented in this encounter Care Teams Corporate Travel Expert Relationship Specialty Start Date End Date Mar Pittman DO [address] [place] [address] PCP - General Family Medicine 05/01/22 documented as of this encounter
--- OUTSIDE RECORDS SUMMARY | 2023-09-27 15:08 | External Medical Summary ---
Author Name Unknown Address Unknown Organization K01:LABORATORY [facility] [place] - [address] [place], [place] [address] Laboratory Report Ordering Provider Test Date Status BARTOLO VALLADARES 07/05/2023 14:20:55 Final Observation Date Value Abnormality Reference (Units ) Status Treponema pallidum Ab [Presence] in Serum by Immunoassay 07/05/2023 14:20:55 Nonreactive Nonreactive Final No serologic evidence of syp hilis. No additional testing clinicially indicated at this time. Consider repeat testing in 2-4 weeks if acute or primary syphilis is suspected. Performing Location LABORATORY [facility] [place] [facility] [address] [facility] [address]
--- OUTSIDE RECORDS SUMMARY | 2023-09-27 15:08 | External Medical Summary ---
Author Name Unknown Address Unknown Organization K01:LABORATORY [facility] [place] [place] - [facility] [address] [place] [address] Laboratory Report Ordering Provider Test Date Status BARTOLO VALLADARES 07/05/2023 14:20:55 Final Observation Date Value Abnormality Reference (Units ) Status Creatinine 07/05/2023 14:20:55 0.8 0.5-1.0 (mg/dL) Final Glomerular filtration rate/1.73 sq M.predicted [Volume Rate/Area] in Serum, Plasma or Blood by Creatinine-based formula (CKD-EPI) 07/05/2023 14:20:55 >90 >=60 (mL/min) Final eGFR is calculated based on the CKD-EPI 2020 equation Performing Location LABORATORY [facility] [place] [place] - [facility] [place] [address]
--- OUTSIDE RECORDS SUMMARY | 2023-09-27 15:09 | External Medical Summary | Summary of Care ---
Author Name Unknown Organization [facility] Address [address] [place] [address] Phone [phone] Care Team Providers Care Acidity Tester Name Role Phone Mar Pittman Primary Care Provider [phone] Reason for Visit * Reason Comments Return Visit Encounter Details Date Type Department Care Team (Late st Contact Info) Description 05/10/2023 2:15 PM EST Office Visit Gynecology/Obstetric [facility] [place] [address] [facility] [place] [address] Nicole Sommer CRNP [address] [facility] [place] [place] [address] Normal in second trimester* Allergies Active Allergy Reactions Criticality Noted Date Comments Codeine Hives 09/08/2021 Penicillins Hives 09/08/2021 documented as of this encounter (statuses as of 05/10/2023) Medications Medication Sig Dispensed Refills Start Date End Date Status 28-0.8 MG Oral Tablet Take by mouth. 0 Active documented as of this encounter (statuses as of 05/10/2023) Active Problems Problem Noted Date Diagnosed Date Normal 03/20/2023 H/O dysplastic nevus 03/12/2023 Overview: Mildly atypical nevus (L upper back) Family history of breast cancer in mother 2021 Overview: Mom diagnosed at age 37, unsure if genetic testing was completed. She's s/p bilateral mastectomy Estimated Date of Delivery Comme nts Yes 09/22/2023 Based on last me nstrual period of 12/16/2022 documented as of this encounter (statuses as of 05/10/2023) Immunizations Name Administration Dates Next Due COVID-19 [...] money to get more. Never true 02/19/2023 [place] Depression Scale Answer Date Recorded [place] Depression Scale Total 6 02/19/2023 The thought [...] Sign Reading Time Taken Comments Blood Pressure 106/62 05/10/2023 1:01 PM EST Pulse - - Temperature - - Respiratory Rate - - Oxygen Saturation - - Inhaled Oxygen Concentration - - Weight 63 kg (139 lb) 05/10/2023 1:01 PM EST Height - - Body Mass Index 23.13 04/17/2023 2:18 PM EDT documented in this encounter Progress Notes * Nicloe Sommer CRNP - 05/10/2023 1:09 PM EST 20w5d Doing well, anatomy scan completed today, report in process. +cardiac activity on scan. Did not find out baby's sex. Declines genetic screening. Discussed sleeping positions in . 4 week return GUALBERTO Peoples * Kaylin Perez LPN - 05/10/2023 1:01 PM EST 20w5d Denies vaginal bleeding/rom + movement Anatomy scan today No new concerns documented in this encounter Plan of Treatment Upcoming Encounters Date Type Department Care Team (Late st Contact Info) Description 05/17/2023 9:10 AM EST [facility] [address] [facility] [address] Mar Pittman DO [address] [facility] [address] 06/07/2023 1:30 PM EST Office Visit Gynecology/Obstetrics [facility] [address] [facility] [place] [address] Nicole Sommer CRNP [address] [facility] [place] [address] 04/29/2024 2:20 PM EDT Office Visit Dermatology, [place] [address] [facility] [place] [address] Julee Gomes PA-C [address] [place] [address] [place] [address] Health Maintenance Due Date Last Done Comments [...] Diagnoses Diagnosis Normal in second trimester- Primary documented in this encounter Care Teams Acidity Tester Relationship Specialty Start Date End Date Mar Pittman DO [address] [place] [address] PCP - General Family Medicine 05/01/22 documented as of this encounter
--- OUTSIDE RECORDS SUMMARY | 2023-09-27 15:09 | External Medical Summary | Summary of Care ---
Author Name Unknown Organization [facility] Address [address] [place] [address] Phone [phone] Care Team Providers Care Hard Metals Hand Engraver Name Role Phone Mar Pittman DO Primary Care Provider [phone] Reason for Visit * Reason Onset Date Comments Advice 05/01/2023 Encounter Details Date Type Department Care Team (Late st Contact Info) Description 05/01/2023 Telephone [place] [address] [place] [address] Mar Pittman DO [address] [place] [address] Advice Allergies Active Allergy Reactions Criticality Noted Date Comments Codeine Hives 09/08/2021 Penicillins Hives 09/08/2021 documented as of this encounter (statuses as of 05/02/2023) Medications Medication Sig Dispensed Refills Start Date End Date Status 28-0.8 MG Oral Tablet Take by mouth. 0 Active documented as of this encounter (statuses as of 05/02/2023) Active Problems Problem Noted Date Diagnosed Date [...] as of this encounter (statuses as of 05/02/2023) Immunizations Name Administration Dates Next Due COVID-19 [...] money to get more. Never true 02/19/2023 [place] Depression Scale Answer Date Recorded [place] Depression Scale Total 6 02/19/2023 The thought [...] encounter Miscellaneous Notes * Telephone Encounter - Lorraine Ellis LPN - 05/02/2023 9:37 AM EDT Tick was present for @ 12 hours maybe longer. Did not appeared that it was in very far and body wasnot filled. Area is a red spot with a darker area in the center. Patient is willing to monitor the area for any changes/rash or enlarged area * Telephone Encounter - Gurmeet Morocho MD - 05/01/2023 5:19 PM EDT Does the patient know how long the tick had been present? Was it engorged? Doxycycline is generallycontraindicated in . Likely reasonable to monitor for development of erythema migrans rash. If this presents, can be treated for early lyme disease with non-tetracycline antibiotic. Gurmeet Morocho MD * Telephone Encounter - Noelle Jarrett OSA - 05/01/2023 10:40 AM EDT Reason for patient's call: tick bite back of L arm below shoulder found today - tick was removed and was disposed of Some redness/purple at site Patient is Caller was transferred to n/a at the nurse line. Transfer attempt to DNL per Panviva protocol unsuccessful Please advise [phone] documented in this encounter Plan of Treatment Upcoming Encounters Date Type Department Care Team (Late st Contact Info) Description 05/10/2023 12:15 PM EST Imaging Radiology [facility] [address] [facility] [place] [address] 05/10/2023 2:15 PM EST Office Visit Gynecology/Obstetrics [facility] [address] [facility] [address] BackerNicole CRNP [address] [facility] [address] 05/17/2023 9:10 AM EST Office Visit [facility] [address] [place] [address] Mar Pittman DO [address] [place] [address] 04/29/2024 2:20 PM EDT Office Visit Dermatology, [place] [address] [place] [address] Julee Gomes PA-C [address] [place] [address] [place] [address] Health Maintenance Due Date Last Done Comments [...] filedocumented as of this encounter Care Teams Hard Metals Hand Engraver Relationship Specialty Start Date End Date Mar Pittman DO [address] [place] [address] PCP - General Family Medicine 05/01/22 documented as of this encounter
--- OUTSIDE RECORDS SUMMARY | 2023-09-27 15:09 | External Medical Summary | Summary of Care ---
Author Name Unknown Organization [facility] Address [address] [place] [address] Phone [phone] Care Team Providers Care Stunt Man Name Role Phone Mar Pittman DO Primary Care Provider [phone] Reason for Visit * Reason Onset Date Comments Advice 05/01/2023 Encounter Details Date Type Department Care Team (Late st Contact Info) Description 05/01/2023 Telephone [place] [address] [place] [address] Mar Pittman DO [address] [place] [address] Advice Allergies Active Allergy Reactions Criticality Noted [...] money to buy more. Never true 02/20/20 Within the past 12 months, t he food you bought just didn't last and you didn't have money to get more. Never true 02/19/2023 [place] Depression Scale Answer Date Recorded [place] Depression Scale Total 6 02/19/2023 The thought [...] encounter Miscellaneous Notes * Telephone Encounter - Gurmeet Morocho MD - 05/02/2023 3:19 PM EDT Recommend patient monitor the area and rest of skin for signs of bullseye rash. If this develops, will treat for early lyme disease. Given short duration of attachment and tick not being engorged, unlikely lyme disease could develop. Gurmeet Morocho MD * Telephone Encounter - Lorraine Ellis LPN [...] DNL per Panviva protocol unsuccessful Please advise [phone] documented in this encounter Plan of Treatment Upcoming Encounters Date Type Department Care Team (Late st Contact Info) Description 05/10/2023 12:15 PM EST Imaging Radiology [facility] [address] [facility] [place] [address] 05/10/2023 2:15 PM EST Office Visit Gynecology/Obstetrics [facility] [address] [place] [address] Back[place], GUALBERTO Stack [address] [facility] [place] [address] 05/17/2023 9:10 AM EST Office Visit Family [facility] [place] [address] [facility], [place] [address] Mar Pittman DO [address] [place] [facility] [place] [address] 04/29/2024 2:20 PM EDT Office Visit Dermatology, [place] [address] [place] [facility] [address] Julee Gomes PA-C [address] [place] [address] [place] [address] Health Maintenance Due Date Last Done Comments Hepatitis B (1 of 3 - 3-dose series) 1995 Depression Screening 2007 DTaP,Tdap,and Td Vaccines (1 - Tdap) 2014 COVID-19 Vaccine (4 - 2022-2 4 season) 2023 05/11/2021, 07/27/2020, 07/06/2020 Influenza [...] filedocumented as of this encounter Care Teams Stunt Man Relationship Specialty Start Date End Date Mar Pittman DO [address] [facility], [place] [address] PCP - General Family Medicine 05/01/22 documented as of this encounter
--- OUTSIDE RECORDS SUMMARY | 2023-09-27 15:09 | External Medical Summary | Summary of Care ---
Author Name Unknown Organization [facility] Address [address] [place] [address] Phone [phone] Care Team Providers Care Polysomnography Technologist Name Role Phone Mar Pittman DO Primary Care Provider [phone] Reason for Visit * Reason Onset Date Comments Advice 05/01/2023 Encounter Details Date Type Department Care Team (Late st Contact Info) Description 05/01/2023 Telephone [place] [address] [place] [address] Mar Pittman DO [address] [place] [address] Advice Allergies Active Allergy Reactions Criticality Noted [...] money to get more. Never true 02/19/2023 [place] Depression Scale Answer Date Recorded [place] Depression Scale Total 6 02/19/2023 The thought [...] encounter Miscellaneous Notes * Telephone Encounter - Sona Dawn CCMA - 05/02/2023 3:27 PM EDT Patient aware and understands message. No other concern voiced. * Telephone Encounter - Gurmeet Morocho MD [...] DNL per Panviva protocol unsuccessful Please advise [phone] documented in this encounter Plan of Treatment Upcoming Encounters Date Type Department Care Team (Late st Contact Info) Description 05/10/2023 12:15 PM EST Imaging Radiology [address] [place] [address] 05/10/2023 2:15 PM EST [facility] [address] [place] [address] Nicole Sommer CRNP [address] [place] [address] 05/17/2023 9:10 AM EST Office Visit Family [facility] [place] [address] [facility], [place] [address] Mar Pittman DO [address] [facility] [place] [address] 04/29/2024 2:20 PM EDT Office Visit Dermatology, [place] [address] [facility] [place] [address] Julee Gomes PA-C [address] [place] [address] [place] [address] Health Maintenance Due Date Last Done Comments [...] filedocumented as of this encounter Care Teams Polysomnography Technologist Relationship Specialty Start Date End Date Mar Pittman DO [address] [facility] [id number] PCP - General Family Medicine 05/01/22 documented as of this encounter
--- OUTSIDE RECORDS SUMMARY | 2023-09-27 15:09 | External Medical Summary | Summary of Care ---
Author Name Unknown Organization [facility] Address [address] [place] [address] Phone [phone] Care Team Providers Care Manufacturing Assistant Name Role Phone Mar Pittman Primary Care Provider Reason for Visit * Reason Comments Return Visit Encounter Details Date Type Department Care Team Description 04/17/2023 [facility] [address] [place] [address] Joanne House CRNP [address] [facility] [place] [address] Normal in second trimester* Allergies Active Allergy Reactions Severity Noted Date Comments Codeine Hives 09/08/2021 Penicillins Hives 09/08/2021 documented as of this encounter (statuses as of 04/17/2023) Medications Medication Sig Dispensed Refills Start Date End Date Status 28-0.8 MG Oral Tablet Take by mouth. 0 Active documented as of this encounter (statuses as of 04/17/2023) Active Problems Problem Noted Date Normal 03/20/2023 H/O dysplastic nevus 03/12/2023 Overview: Mildly atypical nevus (L upper back) Family history of breast cancer in [place]ourt[place] r 09/08/2021 Overview: Mom diagnosed at age 37, unsure if genetic testing was completed. She's s/p bilateral mastectomy Estimated Date of Delivery Comme nts Yes 09/22/2023 Based on last me nstrual period of 12/16/2022 documented as of this encounter (statuses as of 04/17/2023) Immunizations Name Administration Dates Next Due COVID-19 mRNA, LNP-s, No Pre serve, 2-Dose Series (VocalIQ) 07/27/2020,07/06/2020 COVID-19, mRNA, LNP-s, PF, B ooster, 100mcg/0.5mg (Moderna) 05/11/2021 documented as of this encounter Social History Tobacco Use Types Packs/Day Years Used Date Smoking Tobacco: Never Smokeless Tobacco: Never Alcohol Use Standard Drinks/Week Comments Not Currently 0 (1 standard drink = 0.6 oz pur e alcohol) social Food Insecurity Answer Date Recorded Within the past 12 months, y ou worried that your food would run out before you got money to buy more. Never true 02/19/2023 Within the past 12 months, t he food you bought just didn't last and you didn't have money to get more. Never true 02/19/2023 Estimated Date of Delivery Comme nts Yes 09/22/2023 Based on last me nstrual period of 12/16/2022 Sex Assigned at Date Recorded Female 02/19/2023 2:01 PM E DT Job Start Date Occupation Industry Not on file Not on file Not on file documented as of this encounter Last Filed Vital Signs Vital Sign Reading Time Taken Comments Blood Pressure 110/72 04/17/2023 2:18 PM EDT Pulse - - Temperature - - Respiratory Rate - - Oxygen Saturation - - Inhaled Oxygen Concentration - - Weight 62.1 kg (136 lb 12.8 oz) 04/17/2023 2:18 PM EDT Height 165.1 cm (5' 5") 04/17/2023 2:18 PM EDT Body Mass Index 22.76 04/17/2023 2:18 PM EDT documented in this encounter Progress Notes * GUALBERTO Astudillo - 04/17/2023 2:29 PM EDT 17w3d Feeling well. No nausea, headaches have improved. Hasn't felt FM yet. Anatomy u/s with next visit. GUALBERTO Astudillo documented in this encounter Nursing Notes * Ramila Jerry LPN - 04/17/2023 2:20 PM EDT 17w3d Denies concerns. documented in this encounter Plan of Treatment Upcoming Encounters Date Type Specialty Care Team Description 05/10/2023 Imaging Radiology 05/10/2023 Office Visit Gynecology Obstetrics Nicole Sommer CRNP [address] [place] [address] 05/17/2023 Office Visit Family Medicine [facility] [address] [facility] [address] 04/29/2024 Office Visit Dermatology Julee Gomes PA-C [address] [place] [address] [place] [address] Scheduled Orders Name Type Priority Associated Diagnoses Orde r Schedule US PREG SINGLE/1ST GEST, 14 WEEKS OR LATER Medical Imaging Routine Normal in second trimester Expected: 05/01/2023 (Approximate), Expires: 05/18/2024 Health Maintenance Due Date Last Done Comments [...] Primary documented in this encounter Care Teams Manufacturing Assistant Relationship Specialty Start Date End Date Mar Pittman, [address] [place] [address] PCP - General Family Medicine 05/01/22 documented as of this encounter
[2023-09-28] MEDS: miSOPROStoL 50 MCG TAB PO SCH (07:08)
[2023-09-28] MEDS ORDERED: ACETAMINOPHEN 325 MG TAB PO PRN (08:22)
[2023-09-28] MEDS ORDERED: ONDANSETRON INJ 2 MG/ML 2 ML VIAL IV PRN (08:22)
[2023-09-28] MEDS ORDERED: BUTORPHANOL TARTRATE 2 MG/ML VIAL IV PRN (08:22)
--- NOTE | 2023-09-28 08:28 | Obstetrical Progress Note ---
Date of Service September 28, 2023 Assessment & Plan Admission and Anticipated Discharge Date Admission Date: September 27, 2023 Subjective Patient is seen and examined. I get the signout from Dr. Swenson who admitted her yesterday for induction of labor for postdates. She received Cervidil for cervical ripening yesterday and 1 dose of p.o. Cytotec this morning. Her has been uncomplicated, denies medical problems, use of medications, history of STDs including chlamydia gonorrhea nor herpes. Her GBS is negative. She has no complaints, denies headaches, change in her vision, nausea vomiting, painful contractions, leakage of fluid or vaginal bleeding. She reports good movements. she feels irregular abdominal tightening with no pain. Bedside ultrasound performed, single viable IUP, vertex presentation, AFV adequate, multiple movements and breathings noted. EFW is 3800 g. Vaginal exam, cervix is high posterior, 1 cm dilated, 30% effaced, moderate. heart rate category 1, toco contractions every 5 minutes, patient does not feel them. Discussed the findings and continue with cervical ripening today, possible insertion of Hector balloon for mechanical dilatation tonight if no response from p.o. Cytotecs. Patient understands all and agrees with plan. All questions were answered. Results & Data Vital Signs (Past 12 Hours) Vital Signs Temp Pulse Resp BP 09/28/23 07:09 36.9 C 77 20 135/98 09/28/23 04:10 73 111/75 09/28/23 04:00 18 09/28/23 04:00 36.6 C 18 09/28/23 01:24 74 141/88 H 09/28/23 01:00 18 09/28/23 01:00 37.0 C 18 09/27/23 23:00 18 09/27/23 23:00 18 09/27/23 20:42 85 09/27/23 20:42 139/93
--- NOTE | 2023-09-28 17:18 | Obstetrical Progress Note ---
Date of Service September 28, 2023 Assessment & Plan Admission and Anticipated Discharge Date Admission Date: September 27, 2023 Subjective Patient is reevaluated. She has been having contractions every 4 min, after 1 dose of PO Cytotec. She feels them but not painful to take pain meds. Denies VB/ LOF +FM's VE: 1-2 cm/ 40%/ -4, posterior, softer than before FHR categ I Continue to monitor, cervical ripening Plan for Hector balloon insertion when cervix is more reachable. Results & Data Vital Signs (Past 12 Hours) Vital Signs Temp Pulse Resp BP 09/28/23 14:48 36.9 C 83 18 137/87 09/28/23 11:33 37.0 C 90 20 136/97 09/28/23 07:09 36.9 C 77 20 135/98
--- NOTE | 2023-09-28 23:37 | Obstetrical Progress Note ---
Date of Service September 28, 2023 Assessment & Plan Admission and Anticipated Discharge Date Admission Date: September 27, 2023 Subjective Patient is revaluated She had second dose of Cytotec around 8 pm, SROM'ed ay 10:55 pm, clear Contractions are about the same, pain level is 1-2/10 VE; 3/ 40%/ -3, still posterior, soft FHR categ I Tovo ctxs q 2-3 min Plan for expectant management until 4 hours from Cytotec Will start Low dose Oxytocin per protocol. Continue to monitor Results & Data Vital Signs (Past 12 Hours) Vital Signs Temp Pulse Resp BP 09/28/23 22:08 70 116/77 09/28/23 21:09 71 141/98 H 09/28/23 19:30 36.7 C 18 09/28/23 19:30 77 133/90 09/28/23 19:29 18 09/28/23 19:29 36.7 C 18 09/28/23 14:48 36.9 C 83 18 137/87
[2023-09-29] MEDS: LACTATED RINGER'S 1,000 ML IV PRN (00:53)
[2023-09-29] MEDS: OXYTOCIN 30 UNITS/NSS 30 UNITS/500 ML BAG IV PRN (00:55)
[2023-09-29] MEDS ORDERED: fentaNYL citrate PF 100 MCG/2 ML VIAL EPI PRN (03:42)
[2023-09-29] MEDS ORDERED: LIDOCAINE 2% MPF LOCAL 5 ML VIAL EPI PRN (03:42)
[2023-09-29] MEDS ORDERED: BUPIVACAINE 0.25% PF 30 ML VIAL EPI PRN (03:42)
[2023-09-29] MEDS ORDERED: NALOXONE HCL 0.4 MG/1 ML VIAL/CARP IV PRN (03:42)
[2023-09-29] MEDS ORDERED: ROPIVACAINE 0.5% PF 5 MG/ML 20 ML VIAL EPI PRN (03:42)
[2023-09-29] MEDS ORDERED: SODIUM CHLORIDE 0.9% PF INJ 10 ML VIAL EPI PRN (03:42)
[2023-09-29] MEDS ORDERED: ONDANSETRON INJ 2 MG/ML 2 ML VIAL IV PRN (03:42)
[2023-09-29] MEDS ORDERED: ePHEDrine sulfate 50 MG/ML AMP IV PRN (03:42)
[2023-09-29] MEDS ORDERED: diphenhydrAMINE 50 MG/ML VIAL IV PRN (03:42)
[2023-09-29] MEDS ORDERED: NALOXONE HCL 1 MG in SODIUM CHLORIDE 0.9% 1,000 ML IV PRN (03:42)
--- NOTE | 2023-09-29 03:45 | Anesthesiology Consultation ---
Date of Service September 29, 2023 Assessment & Plan (1) Encounter for pre-operative examination: Chart Review Chart Review: Patient NOT seen in Pre Admission Testing and Acceptable Risk for Labor Epidural Consults Requested none History Height/Weight Height: 5 ft 5 in Weight: 77.111 kg Allergies Allergy/AdvReac Type Severity Reaction Status Date / Time codeine AdvReac Hives Verified 09/27/23 08:21 Penicillins AdvReac Hives Verified 09/27/23 08:21 Medications Home Medications Medication Instructions Recorded Confirmed Last Taken ferrous sulfate 325 mg (65 mg 325 mg PO BID 09/27/23 09/27/23 09/24/23 18:00 iron) tablet (Iron (ferrous sulfate)) prenat.vits,augustine,[id number] 1 tab DAILY 09/27/23 09/27/23 09/26/23 18:00 Active Medications Generic Name Dose Route Start Last Admin Trade Name Freq PRN Reason Stop Dose Admin Lactated Ringer's 1,000 mls @ 125 mls/hr 09/27/23 09:18 09/29/23 03:47 Lr IV 09/29/23 09:17 999 mls/hr .Q8H PRN Administration L&D Protocol Protocol Oxytocin 30 units in 500 mls @ 3 mls/hr 09/28/23 23:37 09/29/23 02:00 Pitocin 30 Units/Nss IV 09/30/23 23:36 0.18 units/hr .Q24H PRN 3 mls/hr Labor Induction/Augmentation Titration Protocol 0.18 UNITS/HR Past Medical History Medical History (Updated 09/29/23 @ 03:45 by Jas El MD) Encounter for pre-operative examination No known health problems Exercise / Class Metabolic Activity II 4-5 Yardwork/Stairs/Walk up hill Past Surgical History Surgical History No history of previous surgery Past Anesthesia History No Hx of Anesthesia Complications and No Family Hx of Anesthesia Complications Social History Smoking Status: Never smoker Hx Alcohol Use: No Hx Substance Use: No Physical Exam Vital Signs Last Vital Signs Temp 36.7 C 09/29/23 03:20 Pulse 85 09/29/23 04:06 Resp 18 09/29/23 03:20 BP 120/85 09/29/23 04:06 Pulse Ox 97 09/29/23 04:04 Testing Laboratory Results 09/27/23 09:33 09/27/23 09:33
[2023-09-29] MEDS: LIDOCAINE 2%/EPINEPHRINE 1:200,000 20 ML PF EPI STA (04:09)
[2023-09-29] MEDS: BUPIVACAINE 0.25% PF 30 ML VIAL EPI STA (04:09)
[2023-09-29] MEDS: fentaNYL citrate PF 100 MCG/2 ML VIAL EPI STA (04:09)
[2023-09-29] MEDS: fentaNYL citrate PF 100 MCG/2 ML VIAL ONE (04:10)
[2023-09-29] MEDS: ePHEDrine sulfate 50 MG/ML AMP ONE (04:10)
[2023-09-29] MEDS: LIDOCAINE 2%/EPINEPHRINE 1:200,000 20 ML PF ONE (04:10)
[2023-09-29] MEDS: SODIUM CHLORIDE 0.9% PF INJ 10 ML VIAL ONE (04:10)
[2023-09-29] MEDS: fentANYL 2 MCG/ML BUPIVacaine 0.125%-NSS 100ML BAG ONE (04:10)
[2023-09-29] MEDS: BUPIVACAINE 0.25% PF 30 ML VIAL ONE (04:10)
[2023-09-29] MEDS: SODIUM CHLORIDE 0.9% PF INJ 10 ML VIAL EPI STA (04:11)
[2023-09-29] MEDS: fentANYL 2 MCG/ML BUPIVacaine 0.125%-NSS 100ML BAG EPI PRN (04:12)
[2023-09-29] MEDS ORDERED: Nursing to Pharmacy Communication SCH (12:15)
[2023-09-29] MEDS: CALCIUM CARBONATE 500 MG CHEWABLE TAB PO PRN (18:54)
--- NOTE | 2023-09-30 02:05 | Delivery Summary ---
Vaginal Delivery Summary Date of Service September 30, 2023 Vaginal Delivery Summary live female ROP with Apgars 7/9 weight pending. Cord blood obtained followed by spontaneous delivery of intact placenta. First degree tear repaired with 3/0 Vicryl suture. EBL 300 ml. Final sponge, needle and instrument count are correct. Mom and baby stable.
[2023-09-30] MEDS ORDERED: OXYTOCIN 30 UNITS/NSS 30 UNITS/500 ML BAG IV PRN (02:19)
[2023-09-30] MEDS ORDERED: ACETAMINOPHEN 325 MG TAB PO PRN (02:19)
[2023-09-30] MEDS ORDERED: HYDROCORTISONE ACETATE 25 MG SUPP PR PRN (02:19)
[2023-09-30] MEDS: DIPHTHER/TETAN/PERTUS Vaccine (Tdap, Adol/Adult) 0.5mL IM ONE (02:33)
[2023-09-30] MEDS: IBUPROFEN 600 MG TAB PO PRN (07:48)
[2023-09-30] MEDS ORDERED: FERROUS SULFATE 325 MG TAB PO SCH (08:00)
--- NOTE | 2023-09-30 08:50 | Anesthesia Procedure Note ---
Date of Service September 30, 2023 Anesthesia Post Epidural Note Vital Signs Vital Signs: Temp Pulse Resp BP Pulse Ox O2 Del Method 36.9 C 91 H 16 148/95 H 98 Room Air 09/30/23 07:54 09/30/23 07:54 09/30/23 05:18 09/30/23 07:54 09/30/23 07:54 09/30/23 07:54 Pain Intensity Lower Abdomen: Pain Intensity: 0 Notes Mental Status: alert / awake / arousable and participated in evaluation Nausea / Vomiting: adequately controlled Pain: adequately controlled Airway Patency, RR, SpO2: stable & adequate BP & HR: stable & adequate Hydration State: stable & adequate Neuraxial Anesthesia: was administered and sensory block is resolving Anesthetic Complications: no major complications apparent Epidural: Removed without complications and With tip intact
[2023-09-30] MEDS: DOCUSATE SODIUM 100 MG CAP PO SCH (09:03)
[2023-09-30] MEDS: PRENATAL VITAMIN 1 TAB PO SCH (09:04)
[2023-09-30] MEDS: FERROUS SULFATE 325 MG TAB PO SCH (12:56)
[2023-09-30] MEDS: BENZOCAINE 20% SPRY 85 APPLN/85 GM CAN EXT PRN (16:07)
[2023-10-01 06:31] LABS: Hematocrit (blood only) 30.2 % (37.0-47.0); Hemoglobin 10.8 g/dl (12.0-16.0); Mean Corpuscular Hemoglobin 31.7 pg (25.0-34.0); Mean Corpuscular Hgb Conc 35.8 g/dL (32.0-36.0); Mean Corpuscular Volume 88.6 fL (80.0-100.0); Mean Platelet Volume 10.3 fL (9.4-12.4); Platelet Count 229 K/uL (130-400); RDW Coefficient of Variation 12.7 % (11.5-14.5); RDW Standard Deviation 41.1 fL (36.4-46.3); Red Blood Count 3.41 M/uL (4.20-5.40); White Blood Count 19.57 K/ul (4.8-10.8)
--- NOTE | 2023-10-01 08:13 | Obstetrical Progress Note ---
Date of Service October 01, 2023 Assessment & Plan Admission and Anticipated Discharge Date Admission Date: September 27, 2023 Subjective Patient is seen and examined. She feels well, no complaints. Ambulating without dizziness Voiding without difficulty Tolerating regular diet with out N&V Bleeding is minimal No fever/ chills/ CP/ SOB/ N&V/ Leg pain Breast feeding without problems Vital Signs Temp Pulse Resp BP O2 Del Method 10/01/23 00:15 36.5 C 103 H 18 137/86 Room Air 09/30/23 19:41 36.5 C 93 H 19 143/87 H 09/30/23 16:14 36.3 C L 98 H 136/93 09/30/23 12:37 36.4 C L 87 18 145/87 H 09/30/23 09:43 105 H 133/90 10/01/23 Range/Units 05:54 WBC 19.57 H (4.8-10.8) K/ul RBC 3.41 L (4.20-5.40) M/uL Hgb 10.8 L (12.0-16.0) g/dl Hct 30.2 L (37.0-47.0) % MCV 88.6 (80.0-100.0) fL MCH 31.7 (25.0-34.0) pg MCHC 35.8 (32.0-36.0) g/dL RDW Std Deviation 41.1 (36.4-46.3) fL RDW Coeff of [place] 12.7 (11.5-14.5) % Plt Count 229 (130-400) K/uL MPV 10.3 (9.4-12.4) fL Lab Results 09/27/23 09/27/23 10/01/23 Range/Units 09:33 Unknown 05:54 WBC 10.94 H 19.57 H (4.8-10.8) K/ul RBC 4.56 3.41 L (4.20-5.40) M/uL Hgb 14.2 10.8 L (12.0-16.0) g/dl Hct 39.7 30.2 L (37.0-47.0) % MCV 87.1 88.6 (80.0-100.0) fL MCH 31.1 31.7 (25.0-34.0) pg MCHC 35.8 35.8 (32.0-36.0) g/dL RDW Std Deviation 39.7 41.1 (36.4-46.3) fL RDW Coeff of [place] 12.5 12.7 (11.5-14.5) % Plt Count 218 229 (130-400) K/uL MPV 10.4 10.3 (9.4-12.4) fL Sodium 135 L (136-145) mmol/L Potassium 3.9 (3.5-5.1) mmol/L Chloride 106 (98-107) mmol/L Carbon Dioxide 22 (21-32) mmol/L Anion Gap 7 (3-11) BUN 16 (6-23) mg/dl Creatinine 1.01 (0.6-1.2) mg/dl Est Cr Clr Drug Dosing 85.2 ml/min Est GFR ( Amer) 87.7 ml/min Est GFR (Non-Af Amer) 75.7 ml/min BUN/Creatinine Ratio 15.8 (10-20) Glucose 82 (70-99(Fasting)) mg/dl Calcium 9.1 (8.6-10.3) mg/dl Total Bilirubin 0.7 (0.2-1.0) mg/dl Direct Bilirubin 0.2 (0-0.2) mg/dl AST 22 (13-39) U/L ALT 18 (7-52) U/L Alkaline Phosphatase 170 H (34-104) U/L Total Protein 6.4 (6.0-8.3) gm/dl Albumin 3.3 L (3.4-5.0) gm/dl Globulin 3.1 (2.5-4.0) gm/dl Albumin/Globulin Ratio 1.1 (0.9-2) Ur Random Creatinine 16.1 mg/dl U Random Total Protein < 4.0 (0-11.9) mg/dl Protein/Creatinin Ratio TNP PE: General: Alert, orientedx3, NAD Abd: soft, NT, fundus firm, below Umbilicus Perineum intact, Lochia rubra minimal Ext; NT, no edema AP: 28 yo s/p , ppd# 1 VSS Afebrile doing well Elevated WBCC, afebrile, plan to repeat in am Continue routine care All questions were answered D/C home tomorrow Results & Data Vital Signs (Past 12 Hours) Vital Signs Temp Pulse Resp BP O2 Del Method 10/01/23 00:15 36.5 C 103 H 18 137/86 Room Air
[2023-10-01] MEDS: bisacodyL 5 MG TABEC PO SCH (20:07)
[2023-10-02] MEDS ORDERED: bisacodyL 10 MG SUPP PR PRN (02:19)
[2023-10-02 06:53] LABS: Basophils # (auto) 0.11 K/uL (0.00-0.20); Basophils % (auto) 0.6 %; Eosinophils # (auto) 0.14 K/uL (0.00-0.50); Eosinophils % (auto) 0.8 %; Hematocrit (blood only) 31.2 % (37.0-47.0); Hemoglobin 10.5 g/dl (12.0-16.0); Immature Granulocytes # (auto) 0.52 K/uL (0.01-0.20); Lymphocytes # (auto) 2.72 K/uL (1.20-3.40); Lymphocytes % (auto) 15.7 %; Mean Corpuscular Hemoglobin 30.5 pg (25.0-34.0); Mean Corpuscular Hgb Conc 33.7 g/dL (32.0-36.0); Mean Corpuscular Volume 90.7 fL (80.0-100.0); Mean Platelet Volume 9.8 fL (9.4-12.4); Monocytes % (auto) 5.8 %; Neutrophils # (auto) 12.88 K/uL (1.40-6.50); Neutrophils % (auto) 74.1 %; Platelet Count 243 K/uL (130-400); RDW Coefficient of Variation 12.8 % (11.5-14.5); RDW Standard Deviation 41.3 fL (36.4-46.3); Red Blood Count 3.44 M/uL (4.20-5.40); White Blood Count 17.37 K/ul (4.8-10.8)
--- NOTE | 2023-10-02 09:40 | Labor Progress Brief Note ---
Date of Service October 02, 2023 Assessment & Plan Admission and Anticipated Discharge Date Admission Date: September 27, 2023 Results & Data Vital Signs (Past 12 Hours) Vital Signs Temp Pulse Pulse Resp BP Pulse Ox O2 Del Method 10/02/23 08:51 36.6 C 92 H 79 18 131/84 98 10/02/23 08:00 36.6 C 92 H 18 131/84 10/01/23 23:50 36.9 C 84 20 135/88 98 Room Air
--- NOTE | 2023-10-02 09:41 | Obstetrical Progress Note ---
Date of Service October 02, 2023 Subjective Ambulation: ambulating normally Voiding: no voiding problems Passing Gas:: Yes Diet Tolerance:: regular diet Lochia:: Small Feeding Type:: breast feeding Current Pain Level(1-10): 0 doing well. plans for d/c. Physical Exam Constitutional WD/WN, vitals as above Gastrointestinal (Abdomen) Inspection/Auscultation: abdomen normal to inspection Skin no rashes, warm and dry Neurologic patellar DTR's 2+ bilat, sensation intact Psychiatric A+Ox3, euthymic affect Results & Data Vital Signs (Past 12 Hours) Vital Signs Temp Pulse Pulse Resp BP Pulse Ox O2 Del Method 10/02/23 08:51 36.6 C 92 H 79 18 131/84 98 10/02/23 08:00 36.6 C 92 H 18 131/84 10/01/23 23:50 36.9 C 84 20 135/88 98 Room Air Laboratory Results Laboratory Results - last 72 hr 10/01/23 10/02/23 05:54 06:18 WBC 19.57 H 17.37 H RBC 3.41 L 3.44 L Hgb 10.8 L 10.5 L Hct 30.2 L 31.2 L MCV 88.6 90.7 MCH 31.7 30.5 MCHC 35.8 33.7 RDW Std Deviation 41.1 41.3 RDW Coeff of [place] 12.7 12.8 Plt Count 229 243 MPV 10.3 9.8 Immature Gran % (Auto) 3.0 Neut % (Auto) 74.1 Lymph % (Auto) 15.7 [place] % (Auto) 5.8 Eos % (Auto) 0.8 Baso % (Auto) 0.6 Neut # (Auto) 12.88 H Lymph # (Auto) 2.72 [place] # (Auto) 1.00 H Eos # (Auto) 0.14 Baso # (Auto) 0.11 Immature Gran # (Auto) 0.52 H
== END 2023-10-02 10:00 | disposition home or self-care (01) | DRG 807 ==
LOC: 4S1 07:37 → 4E1 09-30 05:51